=== PATIENT | male | born 1945 | race Caucasian/White ===

== ENCOUNTER 2022-10-02 17:29 | Inpatient (IN) | payer MEDICARE ==
[2022-10-02 17:46] LABS: Glucose,Whole Blood 84 mg/dL (70-110)
--- NOTE | 2022-10-02 18:11 | XR ---
EXAMINATION TYPE: XR chest 2V DATE OF EXAM: 10/02/2022 COMPARISON: NONE HISTORY: Vision loss TECHNIQUE: 2 views FINDINGS: Heart is normal. Lungs are clear of infiltrate. No heart failure. There are no hilar masses . Costophrenic angles are clear. There are chest leads. IMPRESSION: No active cardiopulmonary disease.
--- NOTE | 2022-10-02 18:12 | ED ---
Neuro HPI - General Chief Complaint: Neuro Symptoms/Deficit Stated Complaint: Poss Stroke, Sent by Eye Time Seen by Provider: 10/02/22 17:37 Source: patient Mode of arrival: ambulatory Limitations: no limitations - History of Present Illness Is the patient presenting with stroke symptoms?: Yes Last Known Well Date: 10/01/22 Last Known Well Time: 20:00 -: hour(s) Initial Comments: This patient is a 77-year-old man who presents here to have evaluation for suspected occipital stroke. The patient had gone to see Dr. Meek in his clinic today in relation to a change in his vision. The patient states that it seemed like he was having hard time noting the left side of words and sentences that he was reading. This started yesterday in the evening. Patient was seen by Dr. Meek stated that the patient's ophthalmologic examination seemed normal and he was concerned about occipital stroke. The patient does note also that he has been having about 2 weeks of intermittent right arm tingling. Location: other (Vision) History of same: No Place: home Severity: moderate Quality: other Improves With: none Worsens With: none Context: sudden onset Associated Symptoms: denies other symptoms Treatments Prior to Arrival: none - Related Data Home Medications: Home Medications Medication Instructions Recorded Confirmed Acetaminophen Tab [Tylenol] 1,000 mg PO Q6HR PRN 10/02/22 10/02/22 Nirmatrelvir/Ritonavir [Paxlovid 1 dose PO DAILY 10/02/22 10/02/22 300-100 mg Pack (Eua)] Previous Rx's Medication Instructions Recorded Aspirin [Adult Low Dose Aspirin EC] 81 mg PO DAILY #30 tab 10/04/22 Atorvastatin [Lipitor] 40 mg PO HS #30 tab 10/04/22 Clopidogrel [Plavix] 75 mg PO DAILY 21 Days #21 tab 10/04/22 Allergies/Adverse Reactions: Allergies Allergy/AdvReac Type Severity Reaction Status Date / Time adhesive tape Allergy Rash/Hives Verified 10/03/22 17:35 Review of Systems ROS Statement: Those systems with pertinent positive or pertinent negative responses have been documented in the HPI. ROS Other: All systems not noted in ROS Statement are negative. Constitutional: Denies: fever, chills, weakness Eyes: Reports: vision change. Denies: eye pain ENT: Denies: hearing loss, congestion Respiratory: Denies: cough, dyspnea Cardiovascular: Denies: chest pain, palpitations, syncope Gastrointestinal: Denies: abdominal pain, vomiting, diarrhea Genitourinary: Denies: dysuria, hematuria Skin: Denies: rash Neurological: Reports: as per HPI, paresthesias (Right arm). Denies: headache, weakness, numbness Hematological/Lymphatic: Denies: easy bleeding General Exam Limitations: no limitations General appearance: alert, in no apparent distress Head exam: Present: atraumatic, normocephalic Eye exam: Present: normal appearance. Absent: scleral icterus, conjunctival injection ENT exam: Present: normal oropharynx Neck exam: Present: normal inspection Respiratory exam: Present: normal lung sounds bilaterally. Absent: respiratory distress, wheezes, rales, rhonchi, stridor Cardiovascular Exam: Present: regular rate, normal rhythm, normal heart sounds. Absent: systolic murmur, diastolic murmur, rubs, gallop GI/Abdominal exam: Present: soft. Absent: distended, tenderness, guarding, rebound, rigid, mass Extremities exam: Present: normal inspection, normal capillary refill. Absent: pedal edema, calf tenderness Back exam: Present: normal inspection. Absent: CVA tenderness (R), CVA tenderness (L) Neurological exam: Present: alert, oriented X3, CN II-XII intact. Absent: motor sensory deficit Skin exam: Present: warm, dry, intact, normal color. Absent: rash Stroke MDM - Lab Data Result diagrams: 10/04/22 10:16 10/04/22 10:16 Lab Results 10/02/22 10/02/22 10/02/22 Range/Units 17:41 18:00 18:00 WBC 8.7 (3.8-10.6) k/uL RBC 4.57 (4.30-5.90) m/uL Hgb 15.0 (13.0-17.5) gm/dL Hct 43.9 (39.0-53.0) % MCV 96.0 (80.0-100.0) fL MCH 32.9 (25.0-35.0) pg MCHC 34.2 (31.0-37.0) g/dL RDW 12.2 (11.5-15.5) % Plt Count 239 (150-450) k/uL MPV 7.9 Neutrophils % 52 % Lymphocytes % 36 % Monocytes % 6 % Eosinophils % 3 % Basophils % 1 % Neutrophils # 4.5 (1.3-7.7) k/uL Lymphocytes # 3.1 (1.0-4.8) k/uL Monocytes # 0.6 (0-1.0) k/uL Eosinophils # 0.2 (0-0.7) k/uL Basophils # 0.1 (0-0.2) k/uL PT 10.4 (9.0-12.0) sec INR 1.0 (<1.2) APTT 24.5 (22.0-30.0) sec Sodium (137-145) mmol/L Potassium (3.5-5.1) mmol/L Chloride (98-107) mmol/L Carbon Dioxide (22-30) mmol/L Anion Gap mmol/L BUN (9-20) mg/dL Creatinine (0.66-1.25) mg/dL Est GFR (CKD-EPI)AfAm (>60 ml/min/1.73 sqM) Est GFR (CKD-EPI)NonAf (>60 ml/min/1.73 sqM) Glucose (74-99) mg/dL POC Glucose (mg/dL) 84 (70-110) mg/dL POC Glu Corporate Quality Manager ID [place] [address] Glu mg/dL Hemoglobin A1c (0.0-6.0) % Calcium (8.4-10.2) mg/dL Total Bilirubin (0.2-1.3) mg/dL AST (17-59) U/L ALT (4-49) U/L Alkaline Phosphatase (38-126) U/L Troponin I (0.000-0.034) ng/mL Total Protein (6.3-8.2) g/dL Albumin (3.5-5.0) g/dL 10/02/22 10/02/22 10/02/22 Range/Units 18:00 18:00 18:00 WBC (3.8-10.6) k/uL RBC (4.30-5.90) m/uL Hgb (13.0-17.5) gm/dL Hct (39.0-53.0) % MCV (80.0-100.0) fL MCH (25.0-35.0) pg MCHC (31.0-37.0) g/dL RDW (11.5-15.5) % Plt Count (150-450) k/uL MPV Neutrophils % % Lymphocytes % % Monocytes % % Eosinophils % % Basophils % % Neutrophils # (1.3-7.7) k/uL Lymphocytes # (1.0-4.8) k/uL Monocytes # (0-1.0) k/uL Eosinophils # (0-0.7) k/uL Basophils # (0-0.2) k/uL PT (9.0-12.0) sec INR (<1.2) APTT (22.0-30.0) sec Sodium 140 (137-145) mmol/L Potassium 4.4 (3.5-5.1) mmol/L Chloride 105 (98-107) mmol/L Carbon Dioxide 33 H (22-30) mmol/L Anion Gap 2 mmol/L BUN 24 H (9-20) mg/dL Creatinine 0.96 (0.66-1.25) mg/dL Est GFR (CKD-EPI)AfAm 89 (>60 ml/min/1.73 sqM) Est GFR (CKD-EPI)NonAf 77 (>60 ml/min/1.73 sqM) Glucose 106 H (74-99) mg/dL POC Glucose (mg/dL) (70-110) mg/dL POC Glu Corporate Quality Manager ID Estimated Ave Glu mg/dL 111 Hemoglobin A1c 5.5 (0.0-6.0) % Calcium 9.1 (8.4-10.2) mg/dL Total Bilirubin 0.5 (0.2-1.3) mg/dL AST 29 (17-59) U/L ALT 23 (4-49) U/L Alkaline Phosphatase 84 (38-126) U/L Troponin I <0.012 (0.000-0.034) ng/mL Total Protein 6.4 (6.3-8.2) g/dL Albumin 4.1 (3.5-5.0) g/dL - Medical Decision Making Patient is 77-year-old man here to have evaluation for possible occipital stroke. When I examined the patient I am not able to find the visual field deficit with certainty. The patient is worked up per the stroke protocol. Case discussed with the stroke team and their recommendations are incorporated. - EKG Data -: EKG Interpreted by Me EKG shows normal: sinus rhythm, axis (Normal), intervals (Normal), QRS complexes (Normal), ST-T waves (Normal) Rate: normal (Rate 77 bpm) When compared to previous EKG there are: no significant change Past Medical History Past Medical History: No Reported History History of Any Multi-Drug Resistant Organisms: None Reported Past Surgical History: Back Surgery, Joint Replacement Additional Past Surgical History / Comment(s): left hip replacement Past Psychological History: No Psychological Hx Reported Smoking Status: Never smoker Past Alcohol Use History: None Reported Past Drug Use History: None Reported Course Vital Signs 10/02/22 10/02/22 10/02/22 17:32 17:45 18:00 Temperature 98.2 F Pulse Rate 78 75 80 Respiratory 18 18 20 Rate Blood Pressure 150/90 178/102 145/86 O2 Sat by Pulse 99 97 97 Oximetry 10/02/22 10/02/22 10/02/22 18:15 18:33 19:00 Temperature Pulse Rate 75 70 81 Respiratory 18 18 18 Rate Blood Pressure 134/82 138/90 151/86 O2 Sat by Pulse 98 97 97 Oximetry 10/02/22 10/02/22 10/03/22 21:17 23:18 00:56 Temperature Pulse Rate 66 56 L 56 L Respiratory 18 14 14 Rate Blood Pressure 164/97 138/91 134/75 O2 Sat by Pulse 96 100 97 Oximetry 10/03/22 10/03/22 10/03/22 02:08 05:19 06:43 Temperature Pulse Rate 54 L 45 L 50 L Respiratory 18 18 12 Rate Blood Pressure 123/77 123/73 109/73 O2 Sat by Pulse 97 97 96 Oximetry 10/03/22 11:43 Temperature Pulse Rate 58 L Respiratory 18 Rate Blood Pressure 124/73 O2 Sat by Pulse 100 Oximetry Critical Care Time Critical Care Time: Yes (30 minutes) Disposition Clinical Impression: Visual field defect, Cerebrovascular accident (CVA) Disposition: ADMITTED IP TO THIS [facility] Condition: Good Is patient prescribed a controlled substance at d/c from ED?: No
[2022-10-02 18:16] LABS: Basophils # (A) 0.1 k/uL (0-0.2); Basophils % (A) 1 %; Eosinophils # (A) 0.2 k/uL (0-0.7); Eosinophils % (A) 3 %; HCT 43.9 % (39.0-53.0); Lymphocytes # (A) 3.1 k/uL (1.0-4.8); Lymphocytes % (A) 36 %; MCH 32.9 pg (25.0-35.0); MCHC 34.2 g/dL (31.0-37.0); Mean Platelet Volume 7.9; Monocytes # (A) 0.6 k/uL (0-1.0); Monocytes % (A) 6 %; Neutrophils # (A) 4.5 k/uL (1.3-7.7); Neutrophils % (A) 52 %; Platelet Count 239 k/uL (150-450); RBC 4.57 m/uL (4.30-5.90); RDW 12.2 % (11.5-15.5); WBC 8.7 k/uL (3.8-10.6)
[2022-10-02 18:24] LABS: Albumin 4.1 g/dL (3.5-5.0); Calcium 9.1 mg/dL (8.4-10.2); Potassium 4.4 mmol/L (3.5-5.1); Total Bilirubin 0.5 mg/dL (0.2-1.3); Total Protein 6.4 g/dL (6.3-8.2)
--- NOTE | 2022-10-02 18:26 | CT ---
EXAMINATION TYPE: CT brain wo con for TPA DATE OF EXAM: 10/02/2022 COMPARISON: None HISTORY: neuro deficit, blurred vision CT DLP: 1186.6 mGycm Automated exposure control for dose reduction was used. Images of the brain obtained with no contrast. There is cerebral cortical atrophy. There is no mass effect nor midline shift. No sign of intracrania l hemorrhage. Calvarium is intact. There is normal aeration of the mastoid sinuses. Skull base is int act. IMPRESSION: Cerebral atrophy. No acute intracranial abnormality.
[2022-10-02 18:28] LABS: Partial Thromboplastin Time 24.5 sec (22.0-30.0); Prothrombin Time 10.4 sec (9.0-12.0)
--- NOTE | 2022-10-02 18:38 | CT ---
EXAMINATION TYPE: CT angio head neck DATE OF EXAM: 10/02/2022 COMPARISON: None HISTORY: neuro deficit, blurred vision CT DLP: 538.2 mGycm Automated exposure control for dose reduction was used. CONTRAST: Performed with IV Contrast, patient injected with 65 mL of Isovue 370. Images obtained from the aortic arch to the vertex of the brain with the IV contrast. There are Three -D postprocessed images. There is normal branching pattern of the great vessels on the aortic arch. There is arterial flow in both subclavian arteries. There is arterial flow in the common internal and external carotid arteries bilaterally. There is arterial flow in both vertebral arteries. There is some plaque formation at th e carotid artery bifurcations and less than 20% stenosis. There is arterial flow in both vertebral ar teries. There is no evidence of carotid or vertebral artery aneurysm or dissection. There is arterial flow in the vertebral basilar artery system. There is arterial flow in the anterior middle and posterior cerebral arteries bilaterally. No mass effect. No evidence of intracranial aneu rysm or neovascularity. There is normal enhancement of the venous sinuses. No evidence of intracrania l hemodynamic arterial stenosis. IMPRESSION: Mild plaque formation at the carotid artery bifurcations without hemodynamic stenosis. No significant intracranial angiographic abnormality.
[2022-10-02] MEDS ORDERED: ASPIRIN 325 MG TAB PO STA (19:46)
[2022-10-02] MEDS: FAMOTIDINE 20 MG TAB PO SCH (21:16)
[2022-10-02] MEDS: DOCUSATE 100 MG CAP PO SCH (23:13)
[2022-10-03] MEDS: SODIUM CHLORIDE 0.9% 1,000 ML IV SCH ×2 (00:59→21:58)
[2022-10-03] MEDS: ASPIRIN 325 MG TAB PO SCH (09:03)
[2022-10-03] MEDS: FAMOTIDINE 20 MG TAB PO SCH ×2 (09:04→20:47)
[2022-10-03] MEDS: DOCUSATE 100 MG CAP PO SCH ×3 (09:04→20:49)
[2022-10-03 09:26] LABS: Chol/HDL Ratio 4.61 Ratio; LDL Cholesterol,Calculated 130.9 mg/dL (0.0-131.0)
--- NOTE | 2022-10-03 11:07 | P.CNNES ---
History of Present Illness Consult date: 10/03/22 Requesting physician: Joaquim Fisher Reason for Consult: Stroke vs TIA History of Present Illness: This is a 77-year-old gentleman who presented emergency department on 10/02/2022 because of visual disturbance. Patient is accompanied with his was at bedside. He stated that during the night on 10/01/2022 he was reading something and when he looked down he was unable to see the right side of both eyes like a complete lower on the right side of both eyes so he had to turn his head to see the words. He denied any headache associate with that, any focal weakness, numbness, difficulty getting his words out, swallowing. He denies of any diplopia. Denies of any pain with moving his eyes. Currently he feels there is a black clouds moving over the right side of both eyes. Denies any history of stroke or TIA. Denies being on any antiplatelets or anticoagulation. Denies any history of atrial fibrillation. Denies history of hypertension,diabetes. Denies tobacco use or any illicit drug use. As a result of his visual disturbance the next day he went to his state pilot (Dr. Meek) and was notified likely he had a stroke and he scored the hospital for further evaluation. Upon present in the hospital his visual deficit has resolved per the ED team the ED spoke with the stroke attending. No IV TPA since symptoms resolved as well as the risk outweighed the benefit of given TPA Some of the workup during our hospital visit consisted of: Initial vitals his blood pressure 150/90, heart rate of 78, respiratory of 18, temperature of 98.2 Fahrenheit oral pulse ox of 99%. Only his blood pressure has been normal. CBC with differential is unremarkable And his chemistry panel is nothing stated about his glucose was normal sodium, calcium creatinine is within the normal limits Lipid panel is a triglyceride of 66, cholesterol is 184, LDLs 1:30 and HDL is 39. CT of the head is reported as cerebral atrophy. No acute intracranial abnormality. CT angiography of the head and neck was reported as mild plaque formation at the carotid artery bifurcation without hemodynamic stenosis. No significant i ntercranial and angiographic abnormality. EKG is reported as sinus rhythm. Normal EKG. Review of Systems Review of system: The 12 point system was reviewed and apparent positive and negative per HPI. Past Medical History Past Medical History: No Reported History History of Any Multi-Drug Resistant Organisms: None Reported Past Surgical History: Back Surgery, Joint Replacement Additional Past Surgical History / Comment(s): left hip replacement Past Psychological History: No Psychological Hx Reported Smoking Status: Never smoker Past Alcohol Use History: None Reported Past Drug Use History: None Reported Medications and Allergies Home Medications Medication Instructions Recorded Confirmed Type Acetaminophen Tab [Tylenol Tab] 1,000 mg PO Q6HR PRN 10/02/22 10/02/22 History Nirmatrelvir/Ritonavir [Paxlovid 1 dose PO DAILY 10/02/22 10/02/22 History 2X150 mg-100 mg (Eua)] Allergies Allergy/AdvReac Type Severity Reaction Status Date / Time No Known Allergies Allergy Verified 10/02/22 18:13 Physical Examination - Vital Signs Vital Signs: Vital Signs Temp Pulse Resp BP Pulse Ox 10/03/22 06:43 50 L 12 109/73 96 10/03/22 05:19 45 L 18 123/73 97 10/03/22 02:08 54 L 18 123/77 97 10/03/22 00:56 56 L 14 134/75 97 10/02/22 23:18 56 L 14 138/91 100 10/02/22 21:17 66 18 164/97 96 10/02/22 19:00 81 18 151/86 97 10/02/22 18:33 70 18 138/90 97 10/02/22 18:15 75 18 134/82 98 10/02/22 18:00 80 20 145/86 97 10/02/22 17:45 75 18 178/102 97 10/02/22 17:32 98.2 F 78 18 150/90 99 Intake and Output 10/02/22 10/03/22 10/03/22 22:59 06:59 14:59 Other: Weight 86.183 kg GENERAL: The patient is lying in bed and is not in acute distress. CHEST: The heart rate is regular rate rhythm. No murmurs to auscultation. No carotid bruit bilaterally. LUNG: Clear to auscultation bilaterally no wheezing noted throughout. Not labored breathing. ABDOMEN/GI: Bowel sounds present in all 4 quadrants. No tenderness to palpation throughout. NEUROLOGICAL: Higher mental function: The patient is awake, alert, oriented to self, place and time. Patient is following commands. No aphasia and no neglect. Cranial nerves: The pupils are round, equal and reactive to light and accommodation. Visual limon are full to confrontation throughout. Extraocular movement is intact no nystagmus is noted. Facial sensation is normal to touch throughout. The facial strength is normal throughout. Hearing is normal bilaterally to hand rub. Tongue is midline and moved [id number] without any difficulty. No dysarthria is noted. Shoulder shrug is normal bilaterally. Motor: The strength is 5 over 5 throughout. Normal tone and bulk. Cerebellum: Normal finger to nose bilaterally. Sensation: Sensation is normal to touch throughout. Reflexes (right/left):1+ throughout. Plantars are mute bilaterally. Results - Laboratory Findings CBC and BMP: 10/02/22 18:00 10/02/22 18:00 Abnormal Lab Findings: Abnormal Labs 10/02/22 10/03/22 18:00 06:03 Carbon Dioxide 33 H BUN 24 H Glucose 106 H HDL Cholesterol 39.90 L Assessment and Plan Assessment: This is a 77-year-old gentleman who presented because of sudden onset of right vision loss over both eyes upon trying to read on 10/01/2022 at night. On presentation visual limon are within normal limits. He feels he has a black cloud that's moving over the right side of both eyes. Denies of any focal deficit, headache. Acute ischemic stroke History of lower back surgery History of hip surgery Plan: I ordered MRI of the brain to rule out any acute stroke not seen on a CAT scan, carotid duplex 2-D echo, TSH, hemoglobin A1c, ESR CRP. In the ED the patient was started on aspirin 325mg daily and in addition I started the patient on Plavix 75mg daily (was not on antiplatelets prior to this). I started the patient on Lipitor 40 mg daily at bedtime for secondary stroke prophylaxis. Continue neuro checks Cardiac monitoring PT OT are consulted as well as BOX BRANDER We'll defer the rest of the medical management to primary team For DVT prophylaxis started on subcu heparin 5000 units every hours UPDATE: I personally reviewed MRI Brain and feel suggestive of acute ischemic stroke over the left occipital (predominately) and some focus over left cerebellum. Will wait for final report. Consulted cardiology for event monitor and MILDRED. The plan was discussed with the patient and his was at bedside. Thank you for the consultation Dr. Agosto will start neurology service tomorrow a.m. Time with Patient: Greater than 30
[2022-10-03] MEDS: CLOPIDOGREL 75 MG TAB PO SCH (11:42)
--- NOTE | 2022-10-03 11:45 | US ---
EXAMINATION TYPE: US carotid duplex BILAT DATE OF EXAM: 10/03/2022 COMPARISON: CTA 10/02/2022 CLINICAL HISTORY: TIA vs Stroke. TECHNIQUE: Carotid duplex ultrasound examination. Indirect Doppler criteria was utilized. FINDINGS: EXAM MEASUREMENTS: RIGHT: Peak Systolic Velocity (PSV) cm/sec ----- Right CCA: 67.7 ----- Right ICA: 95.1 ----- Right ECA: 106.0 ICA/CCA ratio: 1.4 RIGHT: End Diastole cm/sec ----- Right CCA: 14.2 ----- Right ICA: 16.0 ----- Right ECA: 7.6 LEFT: Peak Systolic Velocity (PSV) cm/sec ----- Left CCA: 67.7 ----- Left ICA: 82.0 ----- Left ECA: 63.4 ICA/CCA ratio: 1.2 LEFT: End Diastole cm/sec ----- Left CCA: 14.2 ----- Left ICA: 19.4 ----- Left ECA: 10.1 VERTEBRALS (direction of flow): Right Vertebral: Antegrade Left Vertebral: Antegrade Rhythm: Normal SIGNAL PROCESSING ENGINEER NOTES: Mild plaque formation at the carotid artery bifurcations No elevated velocities IMPRESSION: No evidence for hemodynamically significant stenosis. Criteria for Assigning % of Stenosis / Diameter reduction (Estimation based on the indirect measurements of the internal carotid artery velocities (ICA PSV). 1. Normal (no stenosis)=ICA PSV < 125 cm/s: ratio < 2.0: ICA EDV<40 cm/s. 2. Less than 50% stenosis=ICA PSV < 125 cm/s: ratio < 2.0: ICA EDV<40 cm/s. 3. 50 to 69% stenosis=ICA PSV of 125 to 230 cm/s: ration 2.0 ? 4.0: ICA EDV 40-100 cm/s. 4. Greater than 70% stenosis to near occlusion= ICA PSV > 230 cm/s: ratio > 4.0: ICA EDV > 100 cm/s. 5. Near occlusion= ICA PSV velocities may be low or undetectable: variable ratio and ICA EDV. 6. Total occlusion=unable to detect flow.
--- NOTE | 2022-10-03 15:13 | MR ---
EXAMINATION TYPE: MR brain wo con DATE OF EXAM: 10/03/2022 2:46 PM COMPARISON: CT brain 10/02/2022. CLINICAL INDICATION:Male, 77 years old with history of vision loss. stroke; TECHNIQUE: Multi planar, multi sequence imaging was performed through the brain including: T1, T2, In version recovery, Diffusion weighted imaging, and gradient echo imaging. No gadolinium was given. FINDINGS: There is diffusion restriction within the left occipital lobe with an additional small focu s of restricted diffusion within the left cerebellar hemisphere. There is associated high T2 signal i n these regions. Scattered high T2 signal seen within the periventricular white matter. Mild dilation of the ventricles in proportion to cerebral atrophy. The bone marrow signal is within normal limits. The paranasal sinuses and globes are unremarkable. IMPRESSION: 1. Left occipital lobe acute/subacute CVA. 2. Small focus of acute/subacute CVA within the left cerebellum. 3. Nonspecific white matter changes, likely secondary to small vessel ischemic disease A Yellow level critical message alert has been initiated for Hector Milan MD via the [employer] Critical Results System on 10/03/2022 3:11 PM. This message alert has been sent to Hector Milan MD vi a the preferences provided by the clinician for the receipt of Radiology Critical Findings. Message I D [id number].
[2022-10-03] MEDS: HEPARIN SODIUM,PORCINE/PF 5,000 UNIT/0.5 ML SYRINGE SQ SCH ×2 (17:35→20:47)
--- NOTE | 2022-10-03 18:07 | CA ---
Transthoracic Echo Report Name: Jd Goldman Age: 77 Gender: M : 1945 Exam Date: 10/03/2022 10:47 Exam Location: [facility] Ht (in): 72 Wt (lb): 190 Ordering Physician: Kevin Jiménez MD Attending/Referring Phys: Pump Station Operator Anca Barajas RDCS Procedure CPT: Indications: stroke Cardiac Hx: Technical Quality: Fair Contrast 1: Total Dose (mL): Contrast 2: Total Dose (mL): MEASUREMENTS (Male / Female) Normal Values 2D ECHO LV Diastolic Diameter PLAX 3.5 cm 4.2 - 5.9 / 3.9 - 5.3 cm LV Systolic Diameter PLAX 2.8 cm IVS Diastolic Thickness 1.5 cm 0.6 - 1.0 / 0.6 - 0.9 cm LVPW Diastolic Thickness 1.4 cm 0.6 - 1.0 / 0.6 - 0.9 cm LV Relative Wall Thickness 0.8 LA Volume 72.5 cm??? 18 - 58 / 22 - 52 cm??? M-MODE Aortic Root Diameter MM 3.5 cm LA Systolic Diameter MM 3.1 cm LA Ao Ratio MM 0.9 AV Cusp Separation MM 2.0 cm DOPPLER AV Peak Velocity 169.1 cm/s AV Peak Gradient 11.4 mmHg AV Mean Velocity 120.0 cm/s AV Mean Gradient 6.3 mmHg AV Velocity Time Integral 34.7 cm LVOT Peak Velocity 133.2 cm/s LVOT Peak Gradient 7.1 mmHg LVOT Velocity Time Integral 32.7 cm MV Area PHT 3.1 cm??? Mitral E Point Velocity 77.6 cm/s Mitral A Point Velocity 106.3 cm/s Mitral E to A Ratio 0.7 MV Deceleration Time 242.5 ms MV E' Velocity 5.6 cm/s Mitral E to MV E' Ratio 13.8 FINDINGS Left Ventricle Moderately increased left ventricular wall thickness. Normal left ventricular systolic function with no obvious regional wall motion abnormalities. Left ventricular ejection fraction is estimated at 55-60 %. Normal left ventricular diastolic filling pattern. Right Ventricle Normal right ventricular size and function. Right ventricular systolic pressure within normal limits. Right Atrium Normal right atrial size. Left Atrium Moderately increased left atrial volume. Mitral Valve Structurally normal mitral valve. Mild mitral annular calcification. Mild mitral regurgitation. Aortic Valve No aortic valve stenosis or regurgitation. Tricuspid Valve Structurally normal tricuspid valve. Mild tricuspid regurgitation. Pulmonic Valve Trace pulmonic regurgitation. Pericardium No pericardial effusion. Aorta Normal size aortic root and proximal ascending aorta. CONCLUSIONS Left ventricular ejection fraction 55-60% Moderately increased left ventricular wall thickness Mild mitral regurgitation Mild mitral annular calcification Mild tricuspid regurgitation Normal RVSP No pericardial effusion Previewed by: Dr. Alhaji Tinsley DO (Electronically Signed) Final Date: 03 October 2022 18:06
--- NOTE | 2022-10-03 20:50 | P.HPIM ---
History of Present Illness Chief Complaint: visual loss This is a history and physical on a 77-year-old white male who yesterday was seen by ophthalmology secondary to visual loss as he was reading yesterday. 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 Retinal examination did not show a significant problems so he was sent for appropriate workup for CVA. CT with CT angiogram is negative but he ended up having an MRI which sh owed appropriate occipital lesion causing his visual loss. Appreciate neurology input. Recent Covid. No speech or hearing difficulties. No lateral weakness stated. Review of Systems Constitutional: Denies chills, Denies fever Ears, nose, mouth and throat: Denies headache, Denies sore throat Cardiovascular: Denies chest pain, Denies shortness of breath Respiratory: Denies cough Musculoskeletal: Denies myalgias Neurological: Reports as per HPI, Reports visual changes Psychiatric: Denies anxiety, Denies depression Past Medical History Past Medical History: No Reported History History of Any Multi-Drug Resistant Organisms: None Reported Past Surgical History: Back Surgery, Joint Replacement Additional Past Surgical History / Comment(s): left hip replacement Past Psychological History: No Psychological Hx Reported Smoking Status: Never smoker Past Alcohol Use History: None Reported Past Drug Use History: None Reported Medications and Allergies Home Medications Medication Instructions Recorded Confirmed Type Acetaminophen Tab [Tylenol Tab] 1,000 mg PO Q6HR PRN 10/02/22 10/02/22 History Nirmatrelvir/Ritonavir [Paxlovid 1 dose PO DAILY 10/02/22 10/02/22 History 2X150 mg-100 mg (Eua)] Allergies Allergy/AdvReac Type Severity Reaction Status Date / Time adhesive tape Allergy Rash/Hives Verified 10/03/22 17:35 Physical Exam Vitals: Vital Signs Temp Pulse Pulse Resp BP BP Pulse Ox 10/03/22 15:53 98.4 F 74 16 151/80 97 10/03/22 11:43 58 L 18 124/73 100 10/03/22 06:43 50 L 12 109/73 96 10/03/22 05:19 45 L 18 123/73 97 10/03/22 02:08 54 L 18 123/77 97 10/03/22 00:56 56 L 14 134/75 97 10/02/22 23:18 56 L 14 138/91 100 10/02/22 21:17 66 18 164/97 96 Intake and Output 10/03/22 10/03/22 10/03/22 06:59 14:59 22:59 Other: Voiding Method Toilet # Voids 2 - Constitutional General appearance: cooperative, no acute distress - EENT Eyes: EOMI - Neck Neck: no lymphadenopathy - Respiratory Respiratory: bilateral: CTA - Cardiovascular Rhythm: regular Heart sounds: normal: S1, S2 Abnormal Heart Sounds: no S3 Gallop - Gastrointestinal General gastrointestinal: soft, no tenderness - Neurologic Neurologic: CNII-XII intact - Psychiatric Psychiatric: A&O x's 3 Results CBC & Chem 7: 10/02/22 18:00 10/02/22 18:00 Labs: Abnormal Lab Results - Last 24 Hours (Table) 10/03/22 Range/Units 06:03 HDL Cholesterol 39.90 L (40.00-60.00) mg/dL Thrombosis Risk Factor Assmnt - Choose All That Apply Any of the Below Risk Factors Present?: No Other Risk Factors: Yes Each Risk Factor Represents 3 Points: Age 75 years or older Other congenital or acquired thrombophilia - If yes, enter type in comment: No Thrombosis Risk Factor Assessment Total Risk Factor Score: 3 Thrombosis Risk Factor Assessment Level: Moderate Risk Assessment and Plan (1) Cerebrovascular accident (CVA) Current Visit: Yes Status: Acute Code(s): I63.9 - CEREBRAL INFARCTION, UNSPECIFIED SNOMED Code(s): 473849007 (2) Visual field defect Current Visit: Yes Status: Acute Code(s): H53.40 - UNSPECIFIED VISUAL FIELD DEFECTS SNOMED Code(s): 52113718 Plan: Appreciate neurology input. MRI shows appropriate defect which corroborates his story and history. Otherwise, reconcile home medications as necessary. Anti-platelet agent. Continue therapy. Hopefully we can discharge in the next 24-48 hours if he is stable. Dr. Wade's group will be covering for the weekend Time with Patient: Greater than 30
[2022-10-03] MEDS ORDERED: ATORVASTATIN 40 MG TAB PO SCH (21:00)
[2022-10-03] MEDS: PANTOPRAZOLE 40 MG/10 ML VIAL IVP SCH (21:57)
[2022-10-04] MEDS: ASPIRIN 325 MG TAB PO SCH (08:55)
[2022-10-04] MEDS: PANTOPRAZOLE 40 MG/10 ML VIAL IVP SCH (08:55)
[2022-10-04] MEDS: HEPARIN SODIUM,PORCINE/PF 5,000 UNIT/0.5 ML SYRINGE SQ SCH (08:55)
[2022-10-04] MEDS: CLOPIDOGREL 75 MG TAB PO SCH (08:56)
[2022-10-04] MEDS: DOCUSATE 100 MG CAP PO SCH (08:56)
--- NOTE | 2022-10-04 10:31 | P.PN ---
Subjective Progress Note Date: 10/04/22 Patient initially seen by Dr. Kevin Jiménez. Please refer to his note for details. Patient is a 77-year-old male presented with visual disturbance on the right side. MRI of the brain confirmed acute ischemic stroke over the left occipital region and smaller area involving the left cerebellum. Patient had recent Covid infection on 09/18/2022. Patient says that he was not taking any antiplatelet medication at home prior to arrival. He was not taking any medication at all except for Tylenol as needed. At present patient states that he continues to have some geometric figures noticed in the right visual field. The color of this geometric visual scotoma carries over from the previous image that he looks at. Objective - Vital Signs Vital signs: Vital Signs Temp 98.1 F 10/04/22 04:00 Pulse 64 10/04/22 04:00 Resp 16 10/04/22 04:00 BP 118/70 10/04/22 04:00 Pulse Ox 98 10/04/22 04:00 FiO2 Intake & Output 10/03/22 10/04/22 10/04/22 18:59 06:59 18:59 Intake Total 118 Balance 118 Intake: Oral 118 Other: Voiding Method Toilet Toilet # Voids 2 1 - Exam Patient's mental status, speech and language functions are normal. Cranial nerves are normal. His visual limon are full in all 9 quadrants. There is no neglect on double simultaneous stimulation. Face is symmetric and tongue protrudes the midline. On muscle strength testing there is no pronator drift and the strength is normal. Sensations equal with no neglect on double simultaneous stimulation. Cerebellar functions showed slight tremulousness for [id number] testing on the left. No ataxia in the right. Gait deferred. - Labs CBC & Chem 7: 10/04/22 10:16 10/04/22 10:16 Assessment and Plan Assessment: This is a 77-year-old gentleman who presented because of sudden onset of right vision loss over both eyes upon trying to read on 10/01/2022 at night. On presentation visual limon are within normal limits. He feels he has a black cloud that's moving over the right side of both eyes. Denies of any focal deficit, headache. Acute ischemic stroke History of lower back surgery Probable hypercoagulable state due to recent history of Covid-19 infection 09/18/2022. Hyperlipidemia History of hip surgery Plan: MRI of the brain revealed acute ischemic stroke over the left occipital (predominately) and some focus over left cerebellum CT angiography of the head and neck was reported as mild plaque formation at the carotid artery bifurcation without hemodynamic stenosis. No significant intercranial and angiographic abnormality. Telemetry monitoring showing sinus rhythm, but sometimes sinus tachycardia. No other arrhythmia. Carotid duplex showed no significant stenosis. Antegrade flow in both vertebral arteries. 2-D echo revealed normal left ventricular ejection fraction 55-60%. Moderate increased left ventricular wall thickness. Mild MR. Moderately increased left atrial size. Hemoglobin A1c 5.5 Lipid panel with cholesterol 184, LDL 130.9, HDL 39.9 and triglyceride 66. Agree with starting Lipitor 40 g daily. ESR 6 CRP <0.30, TSH 3.26 all normal. Patient to be placed on dual antiplatelet medication, aspirin 81 mg and Plavix 75 mg for 21 days. Thereafter stop Plavix and continue aspirin 81 mg indefinitely. Patient was not taking any antiplatelet medication at home prior to arrival. Neurologically clear for discharge. Follow up with neurologist as an outpatient in 2-4 weeks.
--- NOTE | 2022-10-04 10:54 | P.CRDCN ---
History of Present Illness History of present illness: HISTORY OF PRESENTING ILLNESS Patient is a pleasant 77-year-old male with no medical history other than coated recently approximate 2 weeks ago who presented with acute onset of vision loss. He saw his auto clutch rebuilder and auto clutch rebuilder noted concern of stroke and therefore presented to the ER. Brain MRI did confirm stroke. He is never had a stroke. TIA before. He did recently have coated 09/19 and was fairly mild course. No history of DVT or PE. No cardiac history. Does not smoke, no alcohol and no illicit drugs. No family history of heart disease. Troponins normal 3 and cholesterol 184, LDL 1:30, HDL 39.9. EKG shows sinus rhythm with no significant ST or T wave abnormalities. Echo shows preserved EF. REVIEW OF SYSTEMS At the time of my exam: CONSTITUTIONAL: Denies fever or chills. CARDIOVASCULAR: Denies chest pain, shortness of breath, orthopnea, PND or palpitations. RESPIRATORY: Denies cough. GASTROINTESTINAL: Denies abdominal pain, diarrhea, constipation, nausea or vomiting. MUSCULOSKELETAL: Denies myalgias. NEUROLOGIC: Denies numbness, tingling or weakness. ENDOCRINE: Denies fatigue, weight change, polydipsia or polyurina. GENITOURINARY: Denies burning, hematuria or urgency with micturation. HEMATOLOGIC: Denies history of anemia or bleeding. PHYSICAL EXAMINATION Vital signs reviewed. CONSTITUTIONAL: No apparent distress. HEENT: Head is normocephalic. Pupils are equal, round. Sclerae anicteric. Mucous membranes of the mouth are moist. No JVD. No carotid bruit. CHEST EXAMINATION: Lungs are clear to auscultation. No chest wall tenderness is noted on palpation or with deep breathing. HEART EXAMINATION: Regular rate and rhythm. S1, S2 heard. No murmurs, gallops or rub. ABDOMEN: Soft, nontender. Positive bowel sounds. EXTREMITIES: 2+ peripheral pulses, no lower extremity edema and no calf tenderness. NEUROLOGIC EXAMINATION: Patient is awake, alert and oriented x3. ASSESSMENT 1. Acute stroke 2. Recent COVID-19 infection 2 weeks ago 3. 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 Therefore recommended MILDRED which can be performed as an outpatient as well as event monitor. Denies any palpitations or history of atrial fibrillation. Patient may be discharged home with outpatient follow-up Past Medical History Past Medical History: No Reported History History of Any Multi-Drug Resistant Organisms: None Reported Past Surgical History: Back Surgery, Joint Replacement Additional Past Surgical History / Comment(s): left hip replacement Past Psychological History: No Psychological Hx Reported Smoking Status: Never smoker Past Alcohol Use History: None Reported Past Drug Use History: None Reported Medications and Allergies Home Medications Medication Instructions Recorded Confirmed Type Acetaminophen Tab [Tylenol Tab] 1,000 mg PO Q6HR PRN 10/02/22 10/02/22 History Nirmatrelvir/Ritonavir [Paxlovid 1 dose PO DAILY 10/02/22 10/02/22 History 2X150 mg-100 mg (Eua)] Allergies Allergy/AdvReac Type Severity Reaction Status Date / Time adhesive tape Allergy Rash/Hives Verified 10/03/22 17:35 Physical Exam Vitals: Vital Signs Temp Pulse Pulse Resp BP BP Pulse Ox 10/04/22 04:00 98.1 F 64 16 118/70 98 10/04/22 02:00 60 16 10/03/22 23:52 98.2 F 60 16 133/73 99 10/03/22 20:00 98 F 66 16 134/73 97 10/03/22 15:53 98.4 F 74 16 151/80 97 10/03/22 11:43 58 L 18 124/73 100 Intake and Output 10/03/22 10/04/22 10/04/22 22:59 06:59 14:59 Intake Total 118 Balance 118 Intake: Oral 118 Other: Voiding Method Toilet Toilet # Voids 1 1 Results 10/02/22 18:00 10/02/22 18:00 Current Medications Generic Name Dose Route Start Last Admin Trade Name Freq PRN Reason Stop Dose Admin Aspirin 325 mg 10/03/22 09:00 10/04/22 08:55 Aspirin 325 Mg Tab PO 325 mg DAILY MAYRA Administration Atorvastatin Calcium 40 mg 10/03/22 21:00 10/03/22 20:47 Atorvastatin 40 Mg Tab PO 40 mg HS MAYRA Administration Clopidogrel Bisulfate 75 mg 10/03/22 11:00 10/04/22 08:56 Clopidogrel 75 Mg Tab PO 75 mg DAILY MAYRA Administration Docusate Sodium 100 mg 10/03/22 00:00 10/04/22 08:56 Docusate 100 Mg Cap PO 100 mg Q8HR MAYRA Administration Heparin Sodium (Porcine) 5,000 unit 10/03/22 16:00 10/04/22 08:55 Heparin Sodium,Porcine/Pf 5,000 Unit/0.5 Ml Syringe SQ 5,000 unit Q8HR MAYRA Administration Sodium Chloride 1,000 mls @ 20 mls/hr 10/02/22 20:00 10/03/22 21:58 Saline 0.9% IV Not Given .Q24H MAYRA Pantoprazole Sodium 40 mg 10/03/22 21:00 10/04/22 08:55 Pantoprazole 40 Mg/10 Ml Vial IVP 40 mg DAILY MAYRA Administration Intake and Output 10/03/22 10/04/22 10/04/22 22:59 06:59 14:59 Intake Total 118 Balance 118 Intake: Oral 118 Other: Voiding Method Toilet Toilet # Voids 1 1 10/02/22 18:00 10/02/22 18:00
[2022-10-04 11:12] LABS: HCT 44.5 % (39.0-53.0); HGB 14.3 gm/dL (13.0-17.5); MCH 31.7 pg (25.0-35.0); MCHC 32.2 g/dL (31.0-37.0); MCV 98.5 fL (80.0-100.0); Mean Platelet Volume 8.2; Platelet Count 229 k/uL (150-450); RBC 4.52 m/uL (4.30-5.90); RDW 12.4 % (11.5-15.5); WBC 6.5 k/uL (3.8-10.6)
--- NOTE | 2022-10-04 11:20 | P.DS ---
Providers Date of admission: 10/02/22 19:51 Expected date of discharge: 10/04/22 Attending physician: Hector Milan Consults: 10/02/22 19:50 Consult Physician Routine Consulting Provider: Kevin Jiménez Consult Reason/Comments: Possible stroke vs TIA Do you want consulting provider notified?: Yes 10/03/22 15:36 Consult Physician Routine Consulting Provider: Javier Cervantes Consult Reason/Comments: stroke. Recommend event monitor and consideration MILDRED Do you want consulting provider notified?: Yes Primary care physician: Hector Milan Hospital Course: Discharge diagnoses; Acute CVA Visual field defect Hyperlipidemia Hospital course; 77-year-old white male who yesterday was seen by ophthalmology secondary to visual loss as he was reading yesterday. He went to the sole ruffer and had Lateral hemianopsia. Retinal examination did not show a significant problems so he was sent for appropriate workup for CVA. CT with CT angiogram is negative but he ended up having an MRI which showed appropriate occipital lesion causing his visual loss. Neurology and cardiology were consulted. 10/04/22. Patient seen and examined. took over care. Neurology recommended discharging patient on dual antiplatelet medication of aspirin 81 mg and Plavix 75 mg daily for 21 days, following that Plavix can be discontinued and patient to be continued indefinitely on aspirin 81 mg daily. Cardiology also evaluated the patient recommended outpatient MILDRED and discharging patient with holter monitor PHYSICAL EXAMINATION: GENERAL: The patient is alert and oriented x3, not in any acute distress. Well developed, well nourished. HEENT: Pupils are round and equally reacting to light. EOMI. No scleral icterus. No conjunctival pallor. Normocephalic, atraumatic. No pharyngeal erythema. No thyromegaly. CARDIOVASCULAR: S1 and S2 present. No murmurs, rubs, or gallops. PULMONARY: Chest is clear to auscultation, no wheezing or crackles. ABDOMEN: Soft, nontender, nondistended, normoactive bowel sounds. No palpable organomegaly. MUSCULOSKELETAL: No joint swelling or deformity. EXTREMITIES: No cyanosis, clubbing, or pedal edema. NEUROLOGICAL: Gross neurological examination did not reveal any focal deficits. SKIN: No rashes. Patient Condition at Discharge: Good Plan - Discharge Summary Discharge Rx Participant: No New Discharge Prescriptions: New Clopidogrel [Plavix] 75 mg PO DAILY 21 Days #21 tab Aspirin [Adult Low Dose Aspirin EC] 81 mg PO DAILY #30 tab Atorvastatin [Lipitor] 40 mg PO HS #30 tab Continue Acetaminophen Tab [Tylenol] 1,000 mg PO Q6HR PRN PRN Reason: Pain Or Fever > 100.5 Nirmatrelvir/Ritonavir [Paxlovid 300-100 mg Pack (Eua)] 1 dose PO DAILY Discharge Medication List Acetaminophen Tab [Tylenol] 1,000 mg PO Q6HR PRN 10/02/22 [History] Nirmatrelvir/Ritonavir [Paxlovid 300-100 mg Pack (Eua)] 1 dose PO DAILY 10/02/22 [History] Aspirin [Adult Low Dose Aspirin EC] 81 mg PO DAILY #30 tab 10/04/22 [Rx] Atorvastatin [Lipitor] 40 mg PO HS #30 tab 10/04/22 [Rx] Clopidogrel [Plavix] 75 mg PO DAILY 21 Days #21 tab 10/04/22 [Rx] Follow up Appointment(s)/Referral(s): Hector Milan MD [Primary Care Provider] - 1-2 days Discharge Disposition: HOME SELF-CARE
[2022-10-04 11:37] LABS: ALT 19 U/L (4-49); AST 27 U/L (17-59); African American GFR (CKD) >90 (>60 ml/min/1.73 sqM); Alkaline Phosphatase 73 U/L (38-126); Anion Gap 5 mmol/L; Blood Urea Nitrogen 20 mg/dL (9-20); Calcium 8.8 mg/dL (8.4-10.2); Carbon Dioxide 32 mmol/L (22-30); Chloride 104 mmol/L (98-107); Glucose 96 mg/dL (74-99); Non-African American GFR(CKD) 84 (>60 ml/min/1.73 sqM); Potassium 4.4 mmol/L (3.5-5.1); Sodium 141 mmol/L (137-145); Total Bilirubin 0.6 mg/dL (0.2-1.3); Total Protein 6.2 g/dL (6.3-8.2)
[2022-10-04 11:50] VITALS: BP 120/71; PULSE 62; RESP 18; TEMP 97.9
[2022-10-04 19:17] LABS: C Reactive Protein <0.30 mg/dL (0.00-0.80)
== END 2022-10-04 14:26 | disposition home or self-care (01) | DRG 65 ==
LOC: EC 17:29 → 3SCARD 19:51
PROVIDERS: ADMIT Family Medicine; ATTEND Family Medicine
DX: I63.532 Cerebral infarction due to unspecified occlusion or stenosis of left posterior cerebral artery (principal); D68.69 Other thrombophilia; I08.1 Rheumatic disorders of both mitral and tricuspid valves; I63.542 Cerebral infarction due to unspecified occlusion or stenosis of left cerebellar artery; H53.47 Heteronymous bilateral field defects; E78.5 Hyperlipidemia, unspecified; H53.459 Other localized visual field defect, unspecified eye; H54.3 Unqualified visual loss, both eyes; R20.2 Paresthesia of skin; Z96.642 Presence of left artificial hip joint; Z86.16 Personal history of COVID-19; Z91.048 Other nonmedicinal substance allergy status; Z79.02 Long term (current) use of antithrombotics/antiplatelets; Z79.82 Long term (current) use of aspirin; Z79.899 Other long term (current) drug therapy
CPT/HCPCS: 36415; 70450; 70496; 70498; 70551; 71046; 80053; 80061; 83036; 84443; 84484; 85025; 85027; 85610; 85652; 85730; 86140; 93005; 93270; 93306; 93880; 94760; 99291

== ENCOUNTER 2022-11-01 09:11 | Day surgery (SDC) | payer MEDICARE ==
[2022-10-29 14:28] VITALS: BMI 25.7
[~2022-11-01 09:11] MED LIST: ALPRAZolam 0.25 MG TAB PO PRN; ALPRAZolam 0.5 MG TAB PO PRN; ASPIRIN 325 MG TAB PO ONE; ATORVASTATIN 80 MG TAB PO ONE; HEPARIN SODIUM,PORCINE 10,000 UNIT in SODIUM CHLORIDE 0.9% 1,000 ML IRRIGATION PRN; HEPARIN SODIUM,PORCINE 2,500 UNIT in SODIUM CHLORIDE 0.9% 250 ML IRRIGATION PRN; NITROGLYCERIN SL TABS 0.4 MG TAB SUBLINGUAL PRN; SODIUM CHLORIDE 0.9% 1,000 ML in EMPTY BAG 1 BAG IV SCH
[2022-11-01] MEDS ORDERED: SODIUM CHLORIDE 0.9% 500 ML 500 ML IV ONE (09:30)
[2022-11-01 09:53] VITALS: TEMP 98.1
[2022-11-01] MEDS ORDERED: fentaNYL (PF) 50 MCG/ML 2 ML AMP ONE (10:29)
[2022-11-01] MEDS ORDERED: BENZOCAINE SPRAY 1 CAN TOPICAL ONE (10:36)
[2022-11-01] MEDS ORDERED: MIDAZOLAM 2 MG/2 ML VIAL IV ONE ×2 (10:36→10:44)
[2022-11-01] MEDS ORDERED: fentaNYL (PF) 50 MCG/ML 2 ML AMP IV ONE (10:40)
--- NOTE | 2022-11-01 10:56 | P.TEE ---
Description of Procedure(s): Procedure performed: Transesophageal Echocardiogram with color flow doppler, pulsed wave doppler and continuous wave doppler, moderate conscious sedation Moderate conscious sedation: Moderate conscious sedation was supplied with direct supervision of myself using Versed and Fentanyl. Complications: none Indications: Cryptogenic stroke PROCEDURE: After the risks, benefits and alternatives of the above mentioned procedure was explained in detail with the patient, informed consent was obtained. Patient was brought to the lab in a fasting state. Patient was given IV Versed and Fentanyl for sedation. The throat was sprayed with Hurricane to anesthetize the throat. A lubricated Omni probe was then introduced into the es ophagus and stomach and multiple views were obtained. 2D echo with color flow doppler, pulsed wave doppler and continuous wave doppler was utilized. Agitated saline bubbles were injected to assess for any intra-atrial shunt. The probe was then removed. Patient tolerated the procedure well. Patient was transferred to the post procedure area in stable and satisfactory condition. FINDINGS: 1. The aortic valve is tricuspid and functioning normally without any significant aortic stenosis. 2. The mitral valve appears be normal with trace mitral regurgitation. 3. Tricuspid valve is normal with trace tricuspid regurgitation. 4. The interatrial septum is intact. No evidence of PFO. 5. Left atrial appendage is free of clot. 6. Left ventricular size and function are normal with left ventricular ejection fraction 55%
[2022-11-01 11:08] VITALS: RESP 12
[2022-11-01 12:00] VITALS: PULSE 60
[2022-11-01 12:01] VITALS: BP 141/80
== END 2022-11-01 12:10 | disposition home or self-care (01) ==
LOC: CATHCVL 09:11
PROVIDERS: ATTEND Internal Medicine
DX: I63.9 Cerebral infarction, unspecified (principal); E78.5 Hyperlipidemia, unspecified; Z86.16 Personal history of COVID-19; Z79.02 Long term (current) use of antithrombotics/antiplatelets; Z79.82 Long term (current) use of aspirin
CPT/HCPCS: 93312; 93320; 93325; J2250; J3010

== ENCOUNTER 2023-02-27 18:18 | Emergency (ER) | payer MEDICARE ==
[2023-02-27] MEDS ORDERED: SODIUM CHLORIDE 0.9% 500 ML 500 ML IV STA (18:31)
--- NOTE | 2023-02-27 18:52 | ED ---
General Adult HPI - General Chief complaint: Syncope Stated complaint: syncope Time Seen by Provider: 02/27/23 18:25 Source: patient, EMS Mode of arrival: EMS Limitations: no limitations - History of Present Illness Initial comments: This patient is 77-year-old man who presents to have evaluation after he had passed out at home. The patient states that he thinks he is dehydrated. He had not had any need or drink since last night, as he was having a cataract surgery today at 2 PM. He states he didn't really take much after the surgery because his stomach was a little upset. The patient states that he was at home and went to get up, felt lightheaded and then remembers waking up. The patient does not believe he had any injury. He does not believe he had a significant fall. He is not complaining of pain anywhere. He states that he is not having any eye discomfort. Patient did not note any chest pain or dyspnea. No palpitations. No nausea or vomiting. -: minutes(s) Severity scale (1-10): 0 Consistency: now resolved Improves with: none Worsens with: none Associated Symptoms: denies other symptoms Treatments Prior to Arrival: none - Related Data Home Medications Medication Instructions Recorded Confirmed Acetaminophen Tab [Tylenol] 1,000 mg PO Q6HR PRN 10/02/22 02/27/23 Allergies Allergy/AdvReac Type Severity Reaction Status Date / Time adhesive tape Allergy Rash/Hives Verified 02/27/23 19:01 Review of Systems ROS Statement: Those systems with pertinent positive or pertinent negative responses have been documented in the HPI. ROS Other: All systems not noted in ROS Statement are negative. Constitutional: Denies: fever, chills, weakness Eyes: Denies: eye pain Respiratory: Denies: cough, dyspnea Cardiovascular: Reports: syncope. 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 History of Any Multi-Drug Resistant Organisms: None Reported Past Surgical History: Back Surgery, Joint Replacement Additional Past Surgical History / Comment(s): left hip replacement Past Anesthesia/Blood Transfusion Reactions: No Reported Reaction Past Psychological History: No Psychological Hx Reported Smoking Status: Never smoker Past Alcohol Use History: None Reported Past Drug Use History: None Reported - Past Family History Mother Family Medical History: No Reported History Father Family Medical History: Cancer Sister(s) Family Medical History: Cancer General Exam Limitations: no limitations General appearance: alert, in no apparent distress Head exam: Present: atraumatic, normocephalic Eye exam: Present: EOMI, other (Left eye is patched) Neck exam: Present: normal inspection, full ROM Respiratory exam: Present: normal lung sounds bilaterally. Absent: respiratory distress, wheezes, rales, rhonchi, stridor Cardiovascular Exam: Present: regular rate, normal rhythm, normal heart sounds. Absent: systolic murmur, diastolic murmur, rubs, gallop GI/Abdominal exam: Present: soft. Absent: tenderness, guarding, rebound, mass Extremities exam: Present: normal inspection, normal capillary refill. Absent: pedal edema, calf tenderness Neurological exam: Present: alert, oriented X3, CN II-XII intact. Absent: motor sensory deficit Skin exam: Present: warm, dry, intact, normal color. Absent: rash Course Vital Signs 02/27/23 02/27/23 02/27/23 18:20 20:11 20:48 Temperature 97.6 F Pulse Rate 62 66 84 Respiratory 16 16 18 Rate Blood Pressure 126/84 127/71 O2 Sat by Pulse 97 97 Oximetry EKG Findings - EKG Results: EKG: interpreted by CELSA, sinus rhythm (rate 61 bpm), normal axis, normal QRS, normal ST/T, no acute changes - [place], Pacemaker, Normal: Normal tracing: normal tracing Medical Decision Making - Medical Decision Making This patient is 77-year-old man here following syncopal episode at home. The patient's history and physical is unremarkable. The patient did have workup including labs, EKG, chest x-ray which I interpreted as being negative for infiltrate, congestive heart failure, pneumothorax. He did receive IV fluid. On reevaluation, the patient is feeling very well and requesting to go home. This appropriate further care and follow-up as well as return parameters. Was pt. sent in by a medical professional or institution (Dr., PA, HANGING FLAGS DECORATOR, urgent care, hospital, or penitentiary...) When possible be specific @ -[No] Did you speak to anyone other than the patient for history (EMS, parent, family, police, friend...)? What history was obtained from this source @ -[No] Did you review nursing and triage notes (agree or disagree)? Why? @ -[I reviewed and agree with nursing and triage notes] Were old charts reviewed (outside hosp., previous admission, EMS record, old EKG, old radiological studies, urgent care reports/EKG's, penitentiary records)? Report findings @ -[No old charts were reviewed] Differential Diagnosis (chest pain, altered mental status, abdominal pain women, abdominal pain men, vaginal bleeding, weakness, fever, dyspnea, syncope, headache, dizziness, GI bleed, back pain, seizure, CVA, palpatations, mental health, musculoskeletal)? @ -[Differential Syncope: Valvular disease, hypertrophic cardiomyopathy, pulmonary embolism, tamponade, tachycardia, bradycardia, [place], hypovolemia, hemorrhage, dissection, anemia, intracranial hemorrhage, seizure, hypoglycemia, carbon monoxide poisoning, this is not meant to be an all-inclusive list. EKG interpreted by me (3pts min.). @ -[As above] X-rays interpreted by me (1pt min.). @ -[As above CT interpreted by me (1pt min.). @ -[None done] U/S interpreted by me (1pt. min.). @ -[None done] What testing was considered but not performed or refused? (CT, X-rays, U/S, labs)? Why? @ -[None] What meds were considered but not given or refused? Why? @ -[None] Did you discuss the management of the patient with other professionals (professionals i.e. MYRIAM Vega, HANGING FLAGS DECORATOR, lab, RT, psych nurse, social scientist, hardwood sawyer, teacher, chief financial officer, nurse outreach case manager)? Give summary @ -[No] Was smoking cessation discussed for >3mins.? @ -[No] Was critical care preformed (if so, how long)? @ -[No] Were there social determinants of health that impacted care today? How? (Home lessness, low income, unemployed, alcoholism, drug addiction, transportation, low edu. Level, literacy, decrease access to med. care, long term, rehab)? @ -[No] Was there de-escalation of care discussed even if they declined (Discuss DNR or withdrawal of care, Hospice)? DNR status @ -[No] What co-morbidities impacted this encounter? (DM, HTN, Smoking, COPD, CAD, Cancer, CVA, ARF, Chemo, Hep., AIDS, mental health diagnosis, sleep apnea, morbid obesity)? @ -[None] Was patient admitted / discharged? Hospital course, mention meds given and route, prescriptions, significant lab abnormalities, going to OR and other pertinent info. @ -[Discharged Undiagnosed new problem with uncertain prognosis? @ -[No] Drug Therapy requiring intensive monitoring for toxicity (Heparin, Nitro, Insulin, Cardizem)? @ -[No] Were any procedures done? @ -[No] Diagnosis/symptom? @ -[Acute syncopal episode, uncomplicated Acute, or Chronic, or Acute on Chronic? @ -[default] Uncomplicated (without systemic symptoms) or Complicated (systemic symptoms)? @ -[default] Side effects of treatment? @ -[No] Exacerbation, Progression, or Severe Exacerbation? @ -[No] Poses a threat to life or bodily function? How? (Chest pain, [place], [place], pneumonia, PE, COPD, DKA, ARF, appy, cholecystitis, CVA, Diverticulitis, Homicidal, Suicidal, threat to staff... and all critical care pts) @ -[No] - Lab Data Result diagrams: 02/27/23 18:41 02/27/23 18:41 Lab Results 02/27/23 02/27/23 02/27/23 Range/Units 18:41 18:41 18:41 WBC 6.0 (3.8-10.6) k/uL RBC 4.04 L (4.30-5.90) m/uL Hgb 13.2 (13.0-17.5) gm/dL Hct 39.2 (39.0-53.0) % MCV 97.0 (80.0-100.0) fL MCH 32.7 (25.0-35.0) pg MCHC 33.7 (31.0-37.0) g/dL RDW 12.6 (11.5-15.5) % Plt Count 197 (150-450) k/uL MPV 7.6 Neutrophils % 56 % Lymphocytes % 32 % Monocytes % 7 % Eosinophils % 3 % Basophils % 0 % Neutrophils # 3.3 (1.3-7.7) k/uL Lymphocytes # 1.9 (1.0-4.8) k/uL Monocytes # 0.4 (0-1.0) k/uL Eosinophils # 0.2 (0-0.7) k/uL Basophils # 0.0 (0-0.2) k/uL PT 10.7 (9.0-12.0) sec INR 1.0 (<1.2) APTT 18.5 L (22.0-30.0) sec Sodium 141 (137-145) mmol/L Potassium 3.7 (3.5-5.1) mmol/L Chloride 108 H (98-107) mmol/L Carbon Dioxide 30 (22-30) mmol/L Anion Gap 3 mmol/L BUN 17 (9-20) mg/dL Creatinine 0.88 (0.66-1.25) mg/dL Est GFR (CKD-EPI)AfAm >90 (>60 ml/min/1.73 sqM) Est GFR (CKD-EPI)NonAf 84 (>60 ml/min/1.73 sqM) Glucose 102 H (74-99) mg/dL Calcium 8.4 (8.4-10.2) mg/dL Total Bilirubin 0.6 (0.2-1.3) mg/dL AST 21 (17-59) U/L ALT 17 (4-49) U/L Alkaline Phosphatase 48 (38-126) U/L Troponin I (0.000-0.034) ng/mL Total Protein 5.3 L (6.3-8.2) g/dL Albumin 3.1 L (3.5-5.0) g/dL Urine Color Urine Appearance (Clear) Urine pH (5.0-8.0) Ur Specific [place] (1.001-1.035) Urine Protein (Negative) Urine Glucose (UA) (Negative) Urine Ketones (Negative) Urine Blood (Negative) Urine Nitrite (Negative) Urine Bilirubin (Negative) Urine Urobilinogen (<2.0) mg/dL Ur Leukocyte Esterase (Negative) Urine RBC (0-5) /hpf Urine WBC (0-5) /hpf Ur Squamous Epith Cells (0-4) /hpf Hyaline Casts (0-2) /lpf Urine Mucus (None) /hpf 02/27/23 02/27/23 Range/Units 18:41 19:00 WBC (3.8-10.6) k/uL RBC (4.30-5.90) m/uL Hgb (13.0-17.5) gm/dL Hct (39.0-53.0) % MCV (80.0-100.0) fL MCH (25.0-35.0) pg MCHC (31.0-37.0) g/dL RDW (11.5-15.5) % Plt Count (150-450) k/uL MPV Neutrophils % % Lymphocytes % % Monocytes % % Eosinophils % % Basophils % % Neutrophils # (1.3-7.7) k/uL Lymphocytes # (1.0-4.8) k/uL Monocytes # (0-1.0) k/uL Eosinophils # (0-0.7) k/uL Basophils # (0-0.2) k/uL PT (9.0-12.0) sec INR (<1.2) APTT (22.0-30.0) sec Sodium (137-145) mmol/L Potassium (3.5-5.1) mmol/L Chloride (98-107) mmol/L Carbon Dioxide (22-30) mmol/L Anion Gap mmol/L BUN (9-20) mg/dL Creatinine (0.66-1.25) mg/dL Est GFR (CKD-EPI)AfAm (>60 ml/min/1.73 sqM) Est GFR (CKD-EPI)NonAf (>60 ml/min/1.73 sqM) Glucose (74-99) mg/dL Calcium (8.4-10.2) mg/dL Total Bilirubin (0.2-1.3) mg/dL AST (17-59) U/L ALT (4-49) U/L Alkaline Phosphatase (38-126) U/L Troponin I <0.012 (0.000-0.034) ng/mL Total Protein (6.3-8.2) g/dL Albumin (3.5-5.0) g/dL Urine Color Yellow Urine Appearance Clear (Clear) Urine pH 5.5 (5.0-8.0) Ur Specific [place] 1.024 (1.001-1.035) Urine Protein 1+ H (Negative) Urine Glucose (UA) Negative (Negative) Urine Ketones Negative (Negative) Urine Blood Negative (Negative) Urine Nitrite Negative (Negative) Urine Bilirubin Negative (Negative) Urine Urobilinogen <2.0 (<2.0) mg/dL Ur Leukocyte Esterase Negative (Negative) Urine RBC 17 H (0-5) /hpf Urine WBC 2 (0-5) /hpf Ur Squamous Epith Cells <1 (0-4) /hpf Hyaline Casts 5 H (0-2) /lpf Urine Mucus Many H (None) /hpf Disposition Clinical Impression: Syncope Disposition: HOME SELF-CARE Condition: Good Instructions (If sedation given, give patient instructions): Syncope (ED) Is patient prescribed a controlled substance at d/c from ED?: No Referrals: Hector Milan MD [Primary Care Provider] - 1-2 days
[2023-02-27 18:54] VITALS: TEMP 97.6
[2023-02-27 18:57] LABS: Basophils % (A) 0 %; Eosinophils # (A) 0.2 k/uL (0-0.7); Eosinophils % (A) 3 %; HCT 39.2 % (39.0-53.0); HGB 13.2 gm/dL (13.0-17.5); Lymphocytes # (A) 1.9 k/uL (1.0-4.8); Lymphocytes % (A) 32 %; MCH 32.7 pg (25.0-35.0); MCHC 33.7 g/dL (31.0-37.0); Mean Platelet Volume 7.6; Monocytes # (A) 0.4 k/uL (0-1.0); Monocytes % (A) 7 %; Neutrophils # (A) 3.3 k/uL (1.3-7.7); Neutrophils % (A) 56 %; Platelet Count 197 k/uL (150-450); RBC 4.04 m/uL (4.30-5.90); RDW 12.6 % (11.5-15.5)
[2023-02-27 19:07] LABS: ALT 17 U/L (4-49); AST 21 U/L (17-59); African American GFR (CKD) >90 (>60 ml/min/1.73 sqM); Albumin 3.1 g/dL (3.5-5.0); Alkaline Phosphatase 48 U/L (38-126); Anion Gap 3 mmol/L; Blood Urea Nitrogen 17 mg/dL (9-20); Calcium 8.4 mg/dL (8.4-10.2); Carbon Dioxide 30 mmol/L (22-30); Chloride 108 mmol/L (98-107); Glucose 102 mg/dL (74-99); Non-African American GFR(CKD) 84 (>60 ml/min/1.73 sqM); Potassium 3.7 mmol/L (3.5-5.1); Sodium 141 mmol/L (137-145); Total Bilirubin 0.6 mg/dL (0.2-1.3); Total Protein 5.3 g/dL (6.3-8.2)
--- NOTE | 2023-02-27 19:11 | XR ---
EXAMINATION TYPE: XR chest 1V portable DATE OF EXAM: 02/27/2023 7:07 PM COMPARISON: Chest radiographs from 10/02/2022 TECHNIQUE: XR chest 1V portable Frontal view of the chest. CLINICAL INDICATION:Male, 77 years old with history of syncope; FINDINGS: Lungs/Pleura: There is no evidence of pleural effusion, focal consolidation, or pneumothorax. Pulmonary vascularity: Unremarkable. Heart/mediastinum: Cardiomediastinal silhouette is enlarged and stable. Musculoskeletal: No acute osseous pathology. IMPRESSION: No acute cardiopulmonary disease/process.
[2023-02-27 19:16] LABS: Prothrombin Time 10.7 sec (9.0-12.0)
[2023-02-27 19:21] LABS: Partial Thromboplastin Time 18.5 sec (22.0-30.0)
[2023-02-27] MEDS ORDERED: ACETAMINOPHEN TAB 325 MG TAB PO STA (19:26)
[2023-02-27 19:29] LABS: Appearance,Urine Clear (Clear); Bilirubin,Urine Negative (Negative); Blood,Urine Negative (Negative); Color,Urine Yellow; Glucose,Urine (UA) Negative (Negative); Hyaline Casts,Urine 5 /lpf (0-2); Ketones,Urine Negative (Negative); Leukocyte Esterase,Urine Negative (Negative); Mucus,Urine Many /hpf; Nitrite,Urine Negative (Negative); PH, Urine 5.5 (5.0-8.0); Protein,Urine 1+ (Negative); RBC,Urine 17 /hpf (0-5); Specific Gravity,Urine 1.024 (1.001-1.035); Squamous Epithelial Cell,Urine <1 /hpf (0-4); Urobilinogen,Urine <2.0 mg/dL (<2.0); WBC,Urine 2 /hpf (0-5)
[2023-02-27 20:48] VITALS: BP 127/71; PULSE 84; RESP 18
== END 2023-02-27 20:48 | disposition home or self-care (01) ==
LOC: EC 18:18
DX: R55 Syncope and collapse (principal); E78.5 Hyperlipidemia, unspecified; Z86.73 Personal history of transient ischemic attack (TIA), and cerebral infarction without residual deficits; Z91.048 Other nonmedicinal substance allergy status
CPT/HCPCS: 36415; 71045; 80053; 81001; 84484; 85025; 85610; 85730; 93005; 96360; 99285

== ENCOUNTER 2023-06-10 07:13 | Day surgery (SDC) | payer MEDICARE ==
[~2023-06-10 07:13] MED LIST changes: +ACETAMINOPHEN TAB 500 MG TAB PO PRN; -ALPRAZolam 0.25 MG TAB PO PRN; -ALPRAZolam 0.5 MG TAB PO PRN; -ASPIRIN 325 MG TAB PO ONE; -ATORVASTATIN 80 MG TAB PO ONE; +GABAPENTIN 300 MG CAP PO PRN; -HEPARIN SODIUM,PORCINE 10,000 UNIT in SODIUM CHLORIDE 0.9% 1,000 ML IRRIGATION PRN; -HEPARIN SODIUM,PORCINE 2,500 UNIT in SODIUM CHLORIDE 0.9% 250 ML IRRIGATION PRN; +MELOXICAM 7.5 MG TAB PO PRN; -NITROGLYCERIN SL TABS 0.4 MG TAB SUBLINGUAL PRN; -SODIUM CHLORIDE 0.9% 1,000 ML in EMPTY BAG 1 BAG IV SCH; +TRANEXAMIC 1,000 MG/100ML-NACL 1,000 MG in SALINE 1 100ML.BAG IVPB PRN
[2023-06-10] MEDS ORDERED: LACTATED RINGERS 1,000 ML IV ONE ×2 (07:33→10:08)
[2023-06-10] MEDS ORDERED: ONDANSETRON 4 MG/2 ML VIAL ONE (07:39)
[2023-06-10] MEDS ORDERED: DEXAMETHASONE SOD PHOSPHATE 4 MG/ML 1 ML VIAL IVP ONE (07:45)
[2023-06-10] MEDS ORDERED: droPERidol 5 MG/2 ML VIAL IVP ONE (07:46)
[2023-06-10] MEDS ORDERED: HYDROmorphone 0.5 MG/0.5 ML SYRINGE IVP PRN ×4 (07:46→08:32)
[2023-06-10] MEDS ORDERED: LIDOCAINE 1% (10MG/ML) FOR IV START INTRADERMA PRN (07:46)
[2023-06-10] MEDS ORDERED: LACTATED RINGERS 1,000 ML IV SCH ×2 (07:46)
[2023-06-10] MEDS ORDERED: ONDANSETRON 4 MG/2 ML VIAL IVP ONE (07:46)
[2023-06-10] MEDS ORDERED: DEXAMETHASONE SOD PHOSPHATE 4 MG/ML 1 ML VIAL IV ONE (07:46)
[2023-06-10] MEDS ORDERED: MIDAZOLAM 2 MG/2 ML VIAL IVP ONE (08:25)
[2023-06-10] MEDS ORDERED: MAGNESIUM HYDROXIDE 2,400 MG/30 ML CUP PO PRN (08:32)
[2023-06-10] MEDS ORDERED: ONDANSETRON 4 MG/2 ML VIAL IVP PRN (08:32)
[2023-06-10] MEDS ORDERED: NALOXONE 0.4 MG/ML 1 ML VIAL IV PRN (08:32)
[2023-06-10] MEDS ORDERED: HYDROcodone/APAP 7.5-325MG 1 EACH TAB PO PRN ×2 (08:33)
[2023-06-10] MEDS ORDERED: MIDAZOLAM 2 MG/2 ML VIAL ONE (08:56)
[2023-06-10] MEDS ORDERED: DEXAMETHASONE SOD PHOSPHATE 4 MG/ML 1 ML VIAL ONE (08:56)
[2023-06-10] MEDS ORDERED: TRANEXAMIC 1,000 MG/100ML-NACL PREMIX BAG ONE (08:56)
[2023-06-10] MEDS ORDERED: ROPIVACAINE 5 MG/ML 30 ML VIAL ONE (08:56)
[2023-06-10] MEDS ORDERED: ePHEDrine 50 MG/ML 1 ML VIAL ONE (08:56)
[2023-06-10] MEDS ORDERED: PROPOFOL 10 MG/ML 20 ML VIAL IV ONE (08:56)
[2023-06-10] MEDS ORDERED: fentaNYL (PF) 50 MCG/ML 2 ML AMP ONE (08:56)
[2023-06-10] MEDS ORDERED: ceFAZolin 1,000 MG in SODIUM CHLORIDE 0.9% 1,000 ML IRRIGATION ONE (09:01)
[2023-06-10] MEDS ORDERED: ROPIVACAINE 5 MG/ML 30 ML VIAL MISCELLANE ONE ×2 (09:29→10:07)
--- NOTE | 2023-06-10 10:14 | P.OP ---
Date of Procedure: 06/10/23 Preoperative Diagnosis: Severe osteoarthritis right hip Postoperative Diagnosis: Severe osteoarthritis right hip Procedure(s) Performed: Right total hip arthroplasty with a direct anterior approach Implants: [employer] Polarstem standard size 5 [employer] R3, 3 hole hemispherical acetabular shell, 54 mm [employer] Reflection 6.5 mm cancellus screw, 25 mm, 30 mm [employer] R3, XLPE 20 acetabular liner [employer] Oxinium femoral head 36 m, +4 All components were press-fit. The articulation is Oxinium on polyethylene. Anesthesia: spinal Surgeon: Mike Perrin Employment Instructional Associate #1: Kathy Lynn Estimated Blood Loss (ml): 650 Pathology: none sent Condition: stable Disposition: PACU Indications for Procedure: After failure of conservative treatment we discussed the surgical and nonsurgical treatment options at length. Patient wishes to proceed with a total hip arthroplasty with a direct anterior approach. Complications specific to this procedure were discussed at length, including but not limited to infection, leg length discrepancy, dislocation, nerve injury, and fracture. Covid-19 was also discussed at length with the patient, and they are aware of the current policies and procedures. The patient was given the option of delaying surgery, but they elect to proceed knowing these risks. Patient is aware of all these complications and informed consent was obtained Operative Findings: The operative findings are consistent with severe osteoarthritis of the right hip Description of Procedure: The patient was seen and evaluated in the preoperative area and the consent was reviewed. The operative site was marked with a skin marker. The patient verified the procedure and operative site. A LEEANN block was placed by yamilet saavedra in the preoperative area. The patient was then brought to the operating room and given preoperative antibiotics intravenously. 1 g of Tranexamic acid was also given intravenously. A spinal anesthetic was administered by the anesthesia department. The patient was then placed on the Lawrence table with the bony prominences well-padded. The hip area was then prepped with a ChloraPrep solution and draped in the usual sterile fashion. A universal timeout was then performed, which confirmed the patient's name, surgical site, ALLERGIES, and procedure being performed on the consent. Next the incision site was located at 1 cm distal and 4 cm lateral to the anterior superior iliac spine. The skin and subcutaneous tissues were sharply incised. Incision was carefully dissected down to the fascia overlying the tensor fascia stuart muscle. This fascia was then incised in line with the muscle fibers. Care was taken to stay laterally in order to avoid injuring the lateral femoral cutaneous nerve. Next, using blunt finger dissection, the tensor fascia stuart muscle was dissected off its investing fascia. The muscle was then carefully retracted laterally with a cobra retractor over the lateral neck of the femur. Next, the circumflex vessels were identified and cauterized using the Aquamantis device. The anterior hip capsule was then exposed. The capsule was then opened and an inverted T fashion. The retractors were then placed intracapsularly. The retractors were maintained intracapsular throughout the procedure. The proximal femur was then visualized. Fluoroscopic x-rays were then taken in order to evaluate the preoperative leg lengths. A small amount of traction was placed on the leg. The femoral neck was then osteotomized at the appropriate level above the lesser trochanter. A small wedge of bone was then removed from the remaining femoral head. Next, using a corkscrew the femoral head was removed from the acetabulum. On gross visual inspection, the femoral head had complete loss of articular cartilage and multiple periarticular osteophytes. The femoral head was then measured. Attention was then turned to the acetabulum. The acetabulum was exposed and any remaining labrum was excised. Sequential reaming of the acetabulum was performed using fluoroscopic guidance until there was a good bed of bleeding cancellus bone. When the appropriate size was reached, a trial was then placed. The position and fit of the trial was checked with fluoroscopy. The trial was then removed. Then, using fluoroscopic guidance, the final implant was impacted at 20 of anteversion and 40 of abduction, and fully seated in the acetabulum. 2 screws were then placed in the acetabulum. Again fluoroscopy was used to check position of the screws. Next, the liner was then impacted, with a 20 elevated liner located in the anterior superior quadrant. Component locking was confirmed. Attention was then directed to the femur. With the aid of the Lawrence table, the femur was externally rotated to approximately 130, extended, and adducted under the opposite leg. A side hook was then placed under the proximal femur, and the side hook elevator was used to elevate the proximal femur while releasing the capsule. Retractors were then placed. A capsular release was performed, as well as a release of the conjoined tendon, which afforded excellent visualizatio n of the proximal femur. Next, a box osteotome was used to lateralize the proximal femur. A supervisor coal handling was then used to locate the femoral canal. Sequential broaching was then performed with appropriate size which afforded excellent fixation in the proximal femur. A trial was then placed with appropriate head and neck, and the hip was gently reduced with the aid of the Lawrence table. Fluoroscopy was then used to check position of the components, as well as to evaluate the leg lengths and offset. The leg lengths and offset were measured as closely as possible to ensure stability of the hip. The hip was then gently dislocated and the trials were then removed. Final implants were then impacted and the hip was again reduced. Final fluoroscopic x-rays confirmed that the components were in anatomic position. The leg lengths and offset were measured and were found to coincide with the trial measurements. The hip was also taken through range of motion, and found to be stable. The hip was then copiously irrigated with antibiotic solution with pulsatile lavage. The hip was then irrigated with Irrisept solution. The soft tissues were then injected with a ropivacaine solution. A second dose of 1 g of Tranexamic acid was also given intravenously. The fascia was then closed with 2-0 strata fix suture. The subcutaneous tissue was closed with 3-0 Vicryl. The subcuticular tissue was closed with 3-0 strata fix suture. The skin was then closed with Exofin skin glue. After the glue and dried, and Optifoam silver impregnated dressing was applied. The patient was then transferred to the recovery room in stable condition. The front office assistant MYRIAM Sam was required due to the complexity of surgery, and the need for skilled surgical device sales representative for positioning, draping, exposure, retraction, and closure of the wound.
--- NOTE | 2023-06-10 10:51 | FL ---
Intraoperative/procedural fluoroscopic services were provided. Total fluoroscopy time is 43 seconds w ith a total of 2 submitted images to PACS. Please see the operative/procedural note for further brigette soriano. DAP: [id number] [id number]
--- NOTE | 2023-06-10 11:31 | XR ---
EXAMINATION TYPE: XR Hip Limited RT DATE OF EXAM: 06/10/2023 11:13 AM INDICATION: Patient age:Male; 78 years old; Reason for study: Status post hip surgery, assess surgical alignment; COMPARISON: None. TECHNIQUE: The right hip was examined in the frontal and lateral projections FINDINGS: Post arthroplasty changes, hardware is intact, alignment is appropriate. There is a curvili near lucency extending inferiorly from the acetabulum. Postoperative changes of the soft tissues with subcutaneous gas. No evidence of any acute osseous pathology or joint dislocation. IMPRESSION: 1. Suspected right pelvic fracture extending inferiorly from the acetabulum. 2. Hip arthroplasty with hardware intact and in appropriate alignment.
[2023-06-10] MEDS ORDERED: SODIUM CHLORIDE 0.9% 1,000 ML IV ONE (11:43)
--- NOTE | 2023-06-10 19:08 | P.ANPRN ---
Procedure Note - Anesthesia - Nerve Block Performed Right Silviano Single Time Out Performed: Yes Date of Procedure: 06/10/23 Procedure Start Time: :24 Procedure Stop Time: :30 Location of Patient: PreOp Indication: Acute Post-Operative Pain, Requested by Surgeon Sedation Type: Sedate with meaningful contact maintained Preparation: Sterile Prep Position: Supine Needle Types: Pajunk Needle Gauge: 21 Ultrasound used to visualize needle placement: Yes Ultrasound used to observe medication spread: Yes Blood Aspirated: No Pain Paresthesia on Injection Noted: No Resistance on Injection: Normal Image Stored and Saved: Yes Events: Uneventful and Well Tolerated (Ropivacaine 0.5% 20 mL plus dexamethasone 4mg)
[2023-06-10] MEDS ORDERED: SENNOSIDES-DOCUSATE SODIUM 1 EACH TAB PO SCH (21:00)
[2023-06-10] MEDS: ASPIRIN 325 MG TAB PO SCH (22:09)
[2023-06-11] MEDS: SODIUM CHLORIDE 0.9% 1,000 ML IV SCH (07:39)
[2023-06-11 07:57] VITALS: BP 119/73; PULSE 67; TEMP 98.3
[2023-06-11] MEDS: ASPIRIN 325 MG TAB PO SCH (08:28)
--- NOTE | 2023-06-11 09:12 | P.DS ---
Providers Expected date of discharge: 06/11/23 Attending physician: Mike Perrin Consults: 06/10/23 08:32 Consult Physician Routine Consulting Provider: Hector Milan Consult Reason/Comments: medical management Do you want consulting provider notified?: Yes Primary care physician: Hector Milan - Discharge Diagnosis(es) (1) Osteoarthritis of right hip Current Visit: Yes Status: Acute (2) S/P total right hip arthroplasty Current Visit: Yes Status: Acute Hospital Course: This is a 78-year-old male with known history of degenerative arthritis of the right hip. The patient presented for evaluation as an outpatient. After discussion and consideration patient elects to proceed with total hip arthroplasty. The patient is seen preoperatively by Dr. Perrin and medically cleared for surgery by their primary care physician. Patient is admitted to [facility] on 06/10/2023 for total hip arthroplasty. The procedure is performed without complication or sequelae. The patient is doing well postoperatively. Labs and vital signs are stable on day of discharge. On day of discharge patient's hip incision is healing well. There is minimal erythema. There is no drainage noted at this time. There is minimal soft tis tegan swelling to the hip and thigh. Patient has full foot and ankle motion without difficulty or pain. Calf is soft and nontender to palpation. Neurovascular status to the right lower extremity is intact. Patient is discharged home in good condition. Please see med rec for accurate list of home medications. Plan - Discharge Summary Discharge Rx Participant: No New Discharge Prescriptions: New Sennosides [Senokot] 2 tab PO DAILY PRN #60 tablet PRN Reason: Constipation Aspirin 325 mg PO BID #60 tab HYDROcodone/APAP 7.5-325MG [[place] 7.5-325] 1 - 2 tab PO Q6H PRN #32 tab PRN Reason: Pain No Action Acetaminophen Tab [Tylenol] 1,000 mg PO Q6HR PRN PRN Reason: Pain Or Fever > 100.5 Discharge Medication List Acetaminophen Tab [Tylenol] 1,000 mg PO Q6HR PRN 10/02/22 [History] Aspirin 325 mg PO BID #60 tab 06/10/23 [Rx] HYDROcodone/APAP 7.5-325MG [[place] 7.5-325] 1 - 2 tab PO Q6H PRN #32 tab 06/10/23 [Rx] Sennosides [Senokot] 2 tab PO DAILY PRN #60 tablet 06/10/23 [Rx] Follow up Appointment(s)/Referral(s): Hector Milan MD [Primary Care Provider] - [facility] [NON-STAFF] - 1-2 Days ([facility] will call you to schedule your in home physical therapy visits. ) Mike Perrin DO [Doctor of Osteopathic Medicine] - 06/28/23 9:00 am (With Kathy) Activity/Diet/Wound Care/Special Instructions: Weightbearing as tolerated with walker. Leave dressing intact. Dressing may be removed by home care nurse or by patient in 7 days. Then change dressing twice daily until follow up. May shower with initial dressing intact and after removal. If dressing become saturated, please remove. Please take aspirin 325mg twice daily for 30 days to prevent blood clots. Recommend use of compression stockings daily until follow up to help prevent swelling and blood clots. May remove at night before sleeping. Please follow-up with [facility] in 2 weeks and call with any questions or concerns, . Discharge Disposition: HOME WITH HOME HEALTH SERVICES
--- NOTE | 2023-06-11 09:18 | P.CONS ---
History of Present Illness - Reason for Consult Consult date: 06/11/23 Medical management - Chief Complaint Total right hip arthroplasty - History of Present Illness This is a 78-year-old male with a history of degenerative arthritis of the right hip. He has been following with Dr. Perrin outpatient and it was decided to undergo a right total hip arthroplasty. Patient doesn't have any significant medical history, reports no home meds. Labs are stable. Vitals are stable. Plan is for discharge today. He is sitting in chair at the side of bed this morning. Reports pain is well-controlled. He has full range of motion in foot and ankle without pain. Dressing is dry and intact on right hip. 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 Past Anesthesia/Blood Transfusion Reactions: No Reported Reaction Additional Past Anesthesia/Blood Transfusion Reaction / Comm: PT DEHYDRATED WITH PRIOR SURGERY/HAD TO GO TO ER FOR IV FLUIDS. Pt has never received blood Past Psychological History: No Psychological Hx Reported Additional Psychological History / Comment(s): Pt reside with spouse. Smoking Status: Never smoker Past Alcohol Use History: None Reported Past Drug Use History: None Reported - Past Family History Mother Family Medical History: No Reported History Additional Family Medical History / Comment(s): Lived to be 96yrs old. Father Family Medical History: Cancer Sister(s) Family Medical History: Cancer Medications and Allergies Home Medications Medication Instructions Recorded Confirmed Type Acetaminophen Tab [Tylenol] 1,000 mg PO Q6HR PRN 10/02/22 06/10/23 History Aspirin 325 mg PO BID #60 tab 06/10/23 Rx HYDROcodone/APAP 7.5-325MG [[place] 1 - 2 tab PO Q6H PRN #32 tab 06/10/23 Rx 7.5-325] Sennosides [Senokot] 2 tab PO DAILY PRN #60 tablet 06/10/23 Rx Allergies Allergy/AdvReac Type Severity Reaction Status Date / Time adhesive tape Allergy Rash/Hives Verified 06/10/23 07:53 Physical Exam Vitals: Vital Signs Temp Pulse Resp BP BP Pulse Ox 06/11/23 07:08 98.3 F 67 20 119/73 98 06/11/23 01:04 97.4 F L 79 97/59 95 06/10/23 19:59 98 F 92 18 123/74 96 06/10/23 13:47 77 146/79 99 06/10/23 13:33 84 139/72 95 06/10/23 13:18 70 140/87 98 06/10/23 13:02 79 145/82 97 06/10/23 12:47 97.0 F L 77 16 153/79 98 06/10/23 12:10 64 16 126/70 100 06/10/23 11:44 60 16 123/67 99 06/10/23 11:29 70 16 122/69 98 06/10/23 10:59 64 16 132/66 98 06/10/23 10:44 61 16 102/64 97 06/10/23 10:29 96.8 F L 80 16 110/59 99 Intake and Output 06/10/23 06/11/23 06/11/23 22:59 06:59 14:59 Other: Voiding Method Toilet # Voids 1 3 - Constitutional General appearance: cooperative, no acute distress - EENT Eyes: PERRLA - Neck Neck: no lymphadenopathy, normal ROM, no rigidity - Respiratory Respiratory: bilateral: CTA - Cardiovascular Rhythm: regular Heart sounds: normal: S1, S2 - Gastrointestinal General gastrointestinal: soft, no tenderness - Integumentary Dressing dry and intact right hip Integumentary: normal, normal turgor - Psychiatric Psychiatric: A&O x's 3, appropriate affect, intact judgment & insight Assessment and Plan (1) Osteoarthritis of right hip Current Visit: Yes Status: Acute Code(s): M16.11 - UNILATERAL PRIMARY OSTEOARTHRITIS, RIGHT HIP SNOMED Code(s): 781875309745534 (2) S/P total right hip arthroplasty Current Visit: Yes Status: Acute Code(s): Z96.641 - PRESENCE OF RIGHT ARTIFICIAL HIP JOINT SNOMED Code(s): 393468016785 Plan: Patient is medically stable for discharge. Follow-up in our office in one week Patient seen and evaluated by nurse practitioner, physician in agreement with plan
[2023-06-11 10:04] VITALS: RESP 18
[2023-06-11 14:14] LABS: Basophils # (A) 0.01 X 10*3/uL (0.00-0.10); Basophils % (A) 0.1 %; Eosinophils # (A) 0.01 X 10*3/uL (0.04-0.35); Eosinophils % (A) 0.1 %; HCT 36.1 % (39.6-50.0); HGB 11.8 d/dL (13.0-17.0); Lymphocytes # (A) 1.86 X 10*3/uL (0.90-5.00); Lymphocytes % (A) 14.8 %; MCH 32.3 pg (27.0-32.0); MCHC 32.7 d/dL (32.0-37.0); MCV 98.9 FL (80.0-97.0); Mean Platelet Volume 10.7 FL (9.5-12.2); Monocytes # (A) 1.31 X 10*3/uL (0.20-1.00); Monocytes % (A) 10.4 %; NRBC Per 100 WBC 0 X 10*3/uL (0.00-0.01); Neutrophils # (A) 9.31 X 10*3/uL (1.80-7.70); Neutrophils % (A) 74.3 %; Platelet Count 220 X 10*3/uL (140-440); RBC 3.65 X 10*6/uL (4.40-5.60); RDW 12.9 % (11.5-14.5); WBC 12.54 X 10*3/uL (4.50-10.00)
== END 2023-06-11 10:53 | disposition home health service (06) ==
LOC: OR 07:13 → 4SSUR 10:30 → OR 06-11 10:53
PROVIDERS: ATTEND Orthopaedic Surgery
DX: M25.551 Pain in right hip (principal); E78.5 Hyperlipidemia, unspecified; Z79.899 Other long term (current) drug therapy; Z79.52 Long term (current) use of systemic steroids
CPT/HCPCS: 27130; 97116; 97161; 97535; 97166; 64447; 86900; 86901; 85025; 86850; 73501; C1776; J2250; J1100; J0690 ×2; J2405; J3010; J2795; J2704; J1170

== ENCOUNTER 2023-06-11 19:04 | Emergency (ER) | payer MEDICARE ==
[2023-06-11 19:26] VITALS: RESP 18; TEMP 98.4
[2023-06-11] MEDS ORDERED: SODIUM CHLORIDE 0.9% 500 ML 500 ML IV STA (19:46)
--- NOTE | 2023-06-11 20:11 | ED ---
General Adult HPI - General Chief complaint: Syncope Stated complaint: Synocpe Time Seen by Provider: 06/11/23 19:36 Source: patient Mode of arrival: EMS Limitations: physical limitation - History of Present Illness Initial comments: 78-year-old male presenting for evaluation after a suspected syncopal episode at home. Patient was discharged today from right hip replacement. The patient states that he took a [place] and CBD for pain and then shortly after while he was sitting at the kitchen table his states that he put his head down and started "babbling" he appeared pale and was diaphoretic. The episodes seem to last for a few minutes. Patient does not recall this event and denies the symptoms. Patient has history of TIA. No chest pain, difficulty breathing, abdominal pain, numbness, tingling. - Related Data Home Medications Medication Instructions Recorded Confirmed Acetaminophen Tab [Tylenol] 1,000 mg PO Q6HR PRN 10/02/22 06/10/23 Previous Rx's Medication Instructions Recorded Aspirin 325 mg PO BID #60 tab 06/10/23 HYDROcodone/APAP 7.5-325MG [[place] 1 - 2 tab PO Q6H PRN #32 tab 06/10/23 7.5-325] Sennosides [Senokot] 2 tab PO DAILY PRN #60 tablet 06/10/23 Allergies Allergy/AdvReac Type Severity Reaction Status Date / Time adhesive tape Allergy Rash/Hives Verified 06/11/23 19:26 Review of Systems ROS Statement: Those systems with pertinent positive or pertinent negative responses have been documented in the HPI. ROS Other: All systems not noted in ROS Statement are negative. 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 History of Any Multi-Drug Resistant Organisms: None Reported Past Surgical History: Back Surgery, Joint Replacement Additional Past Surgical History / Comment(s): left hip replacement Past Anesthesia/Blood Transfusion Reactions: No Reported Reaction Past Psychological History: No Psychological Hx Reported Smoking Status: Never smoker Past Alcohol Use History: None Reported Past Drug Use History: None Reported - Past Family History Mother Family Medical History: No Reported History Father Family Medical History: Cancer Sister(s) Family Medical History: Cancer General Exam Limitations: physical limitation General appearance: alert, in no apparent distress Head exam: Present: atraumatic, normocephalic, normal inspection Eye exam: Present: normal appearance, PERRL, EOMI. Absent: scleral icterus, conjunctival injection, periorbital swelling Pupils: Present: normal accommodation Neck exam: Present: normal inspection, full ROM Respiratory exam: Present: normal lung sounds bilaterally. Absent: respiratory distress, wheezes, rales, rhonchi, stridor Cardiovascular Exam: Present: regular rate, normal rhythm, normal heart sounds. Absent: systolic murmur, diastolic murmur, rubs, gallop, clicks Neurological exam: Present: alert, oriented X3, CN II-XII intact Expanded Patient oriented to: Present: person, place, time Speech: Present: fluid speech Cranial nerves: EOM's Intact: Normal Motor strength exam: RUE: 5, LUE: 5, RLE: 5, LLE: 5 Eye Response: (4) open spontaneously Motor Response: (6) obeys commands Verbal Response: (5) oriented Richard Total: 15 Psychiatric exam: Present: normal affect, normal mood Skin exam: Present: warm, dry, intact, normal color. Absent: rash Course Vital Signs 06/11/23 06/11/23 06/11/23 19:10 20:56 22:43 Temperature 98.4 F Pulse Rate 76 93 87 Respiratory 18 18 18 Rate Blood Pressure 119/71 116/61 131/76 O2 Sat by Pulse 96 98 98 Oximetry EKG Findings - EKG Comments: EKG Findings:: Sinus rhythm ventricular rate 83. IA interval 185. QRS 90. QT 345. QTc 385. No ischemic changes. Medical Decision Making - Medical Decision Making Was pt. sent in by a medical professional or institution (, PA, FERRULER, urgent care, hospital, or skilled nursing...) When possible be specific @ -No Did you speak to anyone other than the patient for history (EMS, parent, family, police, friend...)? What history was obtained from this source @ -No Did you review nursing and triage notes (agree or disagree)? Why? @ -I reviewed and agree with nursing and triage notes Were old charts reviewed (outside hosp., previous admission, EMS record, old EKG, old radiological studies, urgent care reports/EKG's, skilled nursing records)? Report findings @ -No old charts were reviewed Differential Diagnosis (chest pain, altered mental status, abdominal pain women, abdominal pain men, vaginal bleeding, weakness, fever, dyspnea, syncope, headache, dizziness, GI bleed, back pain, seizure, CVA, palpatations, mental health, musculoskeletal)? @ -MDM Differential Altered Mental Status: Hypoglycemia, DKA, hypercapnia, ETOH, overdose, CO poisoning, trauma, myxedema coma, HTN encephalopathy, infection, encephalitis, psychosis, intercranial hemorrhage, hepatic encephalopathy, meningitis, CVA this is not meant to be an all-inclusive list EKG interpreted by me (3pts min.). @ -As above X-rays interpreted by me (1pt min.). @ -chest x-ray shows no acute process CT interpreted by me (1pt min.). @ -CT shows no acute intracranial process and nonspecific white matter changes, likely secondary to chronic small vessel ischemic disease U/S interpreted by me (1pt. min.). @ -None done What testing was considered but not performed or refused? (CT, X-rays, U/S, labs)? Why? @ -UA was considered but the patient was requesting immediate discharge home, stated that he would like to be discharged and come back if symptoms return for testing which I believe is reasonable What meds were considered but not given or refused? Why? @ -None Did you discuss the management of the patient with other professionals (professionals i.e. , PA, FERRULER, lab, RT, psych nurse, social media marketing specialist, ice seller, teacher, community service officer, rn case mgr)? Give summary @ -No Was smoking cessation discussed for >3mins.? @ -No Was critical care preformed (if so, how long)? @ -No Were there social determinants of health that impacted care today? How? (Homelessness, low income, unemployed, alcoholism, drug addiction, transportation, low edu. Level, literacy, decrease access to med. care, skilled nursing, rehab)? @ -No Was there de-escalation of care discussed even if they declined (Discuss DNR or withdrawal of care, Hospice)? DNR status @ -No What co-morbidities impacted this encounter? (DM, HTN, Smoking, COPD, CAD, Can cer, CVA, ARF, Chemo, Hep., AIDS, mental health diagnosis, sleep apnea, morbid obesity)? @ -None Was patient admitted / discharged? Hospital course, mention meds given and route, prescriptions, significant lab abnormalities, going to OR and other pertinent info. @ -78-year-old male presenting with chief complaint of what appeared to be a ne ar syncopal episode according to his . The patient laid his head down and started babbling and appeared to be going in and out of consciousness. Also no prior to this patient took a [place] and CBD for pain control as he was discharged from the hospital today after hip replacement. Patient states that he is currently asymptomatic. No focal neurological deficits and GCS 15 lab work shows WBC 12.8 hemoglobin 12. Negative troponin. No acute process seen on chest x-ray and brain CT. Patient is requesting discharge, no urinary symptoms, states that he would like to go home and come back if symptoms return or worsen for UA. I believe this is reasonable. He is going home with his . He is instructed to not combine CBD and pain medication. Follow-up with PCP. Report back to ER with any new or worsening symptoms. Discussed return parameters and answered all questions. Patient conveyed verbal understanding and agreed to the plan. I discussed this case in detail with my attending Dr. Vieira Undiagnosed new problem with uncertain prognosis? @ -No Drug Therapy requiring intensive monitoring for toxicity (Heparin, Nitro, Insulin, Cardizem)? @ -No Were any procedures done? @ -No Diagnosis/symptom? @ -Drug interaction Acute, or Chronic, or Acute on Chronic? @ -Acute Uncomplicated (without systemic symptoms) or Complicated (systemic symptoms)? @ -Uncomplicated Side effects of treatment? @ -No Exacerbation, Progression, or Severe Exacerbation? @ -No Poses a threat to life or bodily function? How? (Chest pain, [place], [place], pneumonia, PE, COPD, DKA, ARF, appy, cholecystitis, CVA, Diverticulitis, Homicidal, Suicidal, threat to staff... and all critical care pts) @ -No - Lab Data Result diagrams: 06/11/23 20:08 06/11/23 20:08 Lab Results 06/11/23 06/11/23 06/11/23 Range/Units 20:08 20:08 20:08 WBC 12.8 H (3.8-10.6) k/uL RBC 3.69 L (4.30-5.90) m/uL Hgb 12.0 L (13.0-17.5) gm/dL Hct 36.1 L (39.0-53.0) % MCV 97.7 (80.0-100.0) fL MCH 32.4 (25.0-35.0) pg MCHC 33.2 (31.0-37.0) g/dL RDW 12.9 (11.5-15.5) % Plt Count 185 (150-450) k/uL MPV 8.3 Neutrophils % 82 % Lymphocytes % 9 % Monocytes % 6 % Eosinophils % 0 % Basophils % 0 % Neutrophils # 10.4 H (1.3-7.7) k/uL Lymphocytes # 1.2 (1.0-4.8) k/uL Monocytes # 0.8 (0-1.0) k/uL Eosinophils # 0.1 (0-0.7) k/uL Basophils # 0.0 (0-0.2) k/uL PT 10.5 (9.0-12.0) sec INR 1.0 (<1.2) APTT 18.2 L (22.0-30.0) sec Sodium 136 L (137-145) mmol/L Potassium 4.6 (3.5-5.1) mmol/L Chloride 103 (98-107) mmol/L Carbon Dioxide 29 (22-30) mmol/L Anion Gap 4 mmol/L BUN 23 H (9-20) mg/dL Creatinine 0.80 (0.66-1.25) mg/dL Est GFR (CKD-EPI)AfAm >90 (>60 ml/min/1.73 sqM) Est GFR (CKD-EPI)NonAf 87 (>60 ml/min/1.73 sqM) Glucose 103 H (74-99) mg/dL Calcium 8.7 (8.4-10.2) mg/dL Magnesium 1.9 (1.6-2.3) mg/dL Total Bilirubin 0.9 (0.2-1.3) mg/dL AST 45 (17-59) U/L ALT 19 (4-49) U/L Alkaline Phosphatase 64 (38-126) U/L Troponin I (0.000-0.034) ng/mL Total Protein 5.8 L (6.3-8.2) g/dL Albumin 3.3 L (3.5-5.0) g/dL 06/11/23 Range/Units 20:08 WBC (3.8-10.6) k/uL RBC (4.30-5.90) m/uL Hgb (13.0-17.5) gm/dL Hct (39.0-53.0) % MCV (80.0-100.0) fL MCH (25.0-35.0) pg MCHC (31.0-37.0) g/dL RDW (11.5-15.5) % Plt Count (150-450) k/uL MPV Neutrophils % % Lymphocytes % % Monocytes % % Eosinophils % % Basophils % % Neutrophils # (1.3-7.7) k/uL Lymphocytes # (1.0-4.8) k/uL Monocytes # (0-1.0) k/uL Eosinophils # (0-0.7) k/uL Basophils # (0-0.2) k/uL PT (9.0-12.0) sec INR (<1.2) APTT (22.0-30.0) sec Sodium (137-145) mmol/L Potassium (3.5-5.1) mmol/L Chloride (98-107) mmol/L Carbon Dioxide (22-30) mmol/L Anion Gap mmol/L BUN (9-20) mg/dL Creatinine (0.66-1.25) mg/dL Est GFR (CKD-EPI)AfAm (>60 ml/min/1.73 sqM) Est GFR (CKD-EPI)NonAf (>60 ml/min/1.73 sqM) Glucose (74-99) mg/dL Calcium (8.4-10.2) mg/dL Magnesium (1.6-2.3) mg/dL Total Bilirubin (0.2-1.3) mg/dL AST (17-59) U/L ALT (4-49) U/L Alkaline Phosphatase (38-126) U/L Troponin I <0.012 (0.000-0.034) ng/mL Total Protein (6.3-8.2) g/dL Albumin (3.5-5.0) g/dL Disposition Clinical Impression: Drug interaction Disposition: HOME SELF-CARE Condition: Good Instructions (If sedation given, give patient instructions): Opioid Safety (ED) Additional Instructions: Follow-up with PCP and surgeon. Report back to ER with any new or worsening symptoms. Take medication as prescribed. Do not combine CBD with [place] or other opioids. Is patient prescribed a controlled substance at d/c from ED?: No Referrals: Hector Milan MD [Primary Care Provider] - 1-2 days Time of Disposition: 22:19
--- NOTE | 2023-06-11 21:27 | CT ---
EXAMINATION TYPE: CT brain wo con CT DLP: 1200.4 mGycm, Automated exposure control for dose reduction was used. DATE OF EXAM: 06/11/2023 9:13 PM COMPARISON: 10/02/2022. CLINICAL INDICATION:Male, 78 years old with history of syncope, AMS, syncope, AMS. pt had hip sx yest erday TECHNIQUE: Brain: Axial CT images of the brain were obtained with coronal and sagittal reformats created and rev iewed. Contrast used: None. Oral contrast used: None. FINDINGS: Brain: Extra-axial spaces: No abnormal extra-axial fluid collections. Ventricular system: Dilatation in proportion to cerebral atrophy. Cerebral parenchyma: Cerebral atrophy. No acute intraparenchymal hemorrhage or mass effect. The patricio -white junction is well differentiated. Scattered hypoattenuating areas are seen within the white mat ter. Cerebellum: Unremarkable. Mass effect: No evidence of midline shift. Intracranial vasculature: Atherosclerotic calcifications of the intracranial vessels. Soft tissues: Normal. Calvarium/osseous structures: No depressed skull fracture. Paranasal sinuses and mastoid air cells: Mild scattered paranasal sinus disease. Visualized orbits: Bilateral aphakia IMPRESSION: 1. No acute intracranial process. 2. Nonspecific white matter changes, likely secondary to chronic small vessel ischemic disease.
[2023-06-11 21:30] LABS: Basophils % (A) 0 %; Eosinophils # (A) 0.1 k/uL (0-0.7); Eosinophils % (A) 0 %; HCT 36.1 % (39.0-53.0); Lymphocytes # (A) 1.2 k/uL (1.0-4.8); Lymphocytes % (A) 9 %; MCH 32.4 pg (25.0-35.0); MCHC 33.2 g/dL (31.0-37.0); MCV 97.7 fL (80.0-100.0); Mean Platelet Volume 8.3; Monocytes # (A) 0.8 k/uL (0-1.0); Monocytes % (A) 6 %; Neutrophils # (A) 10.4 k/uL (1.3-7.7); Neutrophils % (A) 82 %; Platelet Count 185 k/uL (150-450); RBC 3.69 m/uL (4.30-5.90); RDW 12.9 % (11.5-15.5); WBC 12.8 k/uL (3.8-10.6)
[2023-06-11 21:36] LABS: ALT 19 U/L (4-49); AST 45 U/L (17-59); African American GFR (CKD) >90 (>60 ml/min/1.73 sqM); Albumin 3.3 g/dL (3.5-5.0); Alkaline Phosphatase 64 U/L (38-126); Anion Gap 4 mmol/L; Blood Urea Nitrogen 23 mg/dL (9-20); Calcium 8.7 mg/dL (8.4-10.2); Carbon Dioxide 29 mmol/L (22-30); Chloride 103 mmol/L (98-107); Glucose 103 mg/dL (74-99); Magnesium 1.9 mg/dL (1.6-2.3); Non-African American GFR(CKD) 87 (>60 ml/min/1.73 sqM); Potassium 4.6 mmol/L (3.5-5.1); Sodium 136 mmol/L (137-145); Total Bilirubin 0.9 mg/dL (0.2-1.3); Total Protein 5.8 g/dL (6.3-8.2)
--- NOTE | 2023-06-11 21:49 | XR ---
EXAMINATION TYPE: XR chest 2V DATE OF EXAM: 06/11/2023 9:19 PM COMPARISON: Chest radiographs from 02/27/2023 TECHNIQUE: XR chest 2V Frontal and lateral views of the chest. CLINICAL INDICATION:Male, 78 years old with history of syncope; FINDINGS: Lungs/Pleura: There is no evidence of pleural effusion, focal consolidation, or pneumothorax. Pulmonary vascularity: Unremarkable. Heart/mediastinum: Cardiomediastinal silhouette is unremarkable. Musculoskeletal: No acute osseous pathology. IMPRESSION: No acute cardiopulmonary disease/process.
[2023-06-11 21:59] LABS: Prothrombin Time 10.5 sec (9.0-12.0)
[2023-06-11 22:06] LABS: Partial Thromboplastin Time 18.2 sec (22.0-30.0)
[2023-06-11 22:45] VITALS: BP 131/76; PULSE 87
== END 2023-06-11 22:44 | disposition home or self-care (01) ==
LOC: EC 19:04
DX: T40.601A Poisoning by unspecified narcotics, accidental (unintentional), initial encounter (principal); Z91.09 Other allergy status, other than to drugs and biological substances
CPT/HCPCS: 36415; 70450; 71046; 80053; 83735; 84484; 85025; 85610; 85730; 93005; 99285

== ENCOUNTER → 2024-03-02 | Outpatient (CLI) | payer MEDICARE ==
--- NOTE | 2024-03-02 18:26 | CT ---
EXAMINATION TYPE: CT brain wo con DATE OF EXAM: 03/02/2024 COMPARISON: 06/11/2023 HISTORY: Stroke 10/04, change in memory CT DLP: 1242 mGycm Automated exposure control for dose reduction was used. Findings: The ventricles, basal cisterns and sulci over the convexities are within normal limits and there is n o mass effect or shift of midline structures. There is a remote small infarct in the left occipital lobe. There is mild decreased density in the pe riventricular white matter mild chronic ischemic white matter demyelination The posterior fossa including the brainstem, fourth ventricle and cerebellar pontine angles appear no rmal. Intraorbital contents appear normal and symmetric. Visualized paranasal sinuses and mastoid air cells are well aerated. The calvarium is intact. IMPRESSION: 1. No acute bleed or mass effect. 2. Small remote infarct in the left occipital lobe.
== END | disposition home or self-care (01) ==
LOC: RADCTMAIN 15:48
PROVIDERS: ATTEND Family Medicine
DX: R41.3 Other amnesia (principal); G45.9 Transient cerebral ischemic attack, unspecified
CPT/HCPCS: 70450

== ENCOUNTER → 2024-05-07 | Outpatient (CLI) | payer MEDICARE | END | disposition home or self-care (01) | LOC: LABWHC1 16:24 | PROVIDERS: ATTEND Psychiatry & Neurology Neurology | DX: Z53.9 Procedure and treatment not carried out, unspecified reason (principal) ==

== ENCOUNTER → 2024-05-25 | Outpatient (CLI) | payer MEDICARE ==
--- NOTE | 2024-05-26 09:43 | MR ---
EXAMINATION TYPE: MR brain wo con DATE OF EXAM: 05/25/2024 5:49 PM CLINICAL INDICATION:Male, 78 years old with history of I63.9 CEREBRAL INFARCTION; PHH, CVA, increased memory loss. COMPARISON: 10/03/2022. TECHNIQUE: Multi planar, multi sequence imaging was performed through the brain including: T1, T2, In version recovery, Diffusion weighted imaging, and gradient echo imaging. No gadolinium was given. FINDINGS: Small infarct in the cerebellum and left occipital lobe now demonstrates encephalomalacia. Mild cerebral atrophy with proportional dilation of ventricular system. Scattered foci of high T2 s ignal intensity are seen within the periventricular white matter. Midline structures show no abnormal ity. Diffusion-weighted imaging shows no evidence of restricted diffusion. The susceptibility weighte d images reveal left zaidi frontal lobe radiata micro-hemorrhage. The bone marrow signal is within normal limits. Paranasal sinuses and mastoid air cells: No significant paranasal sinus disease. Visualized orbits: Bilateral aphakia IMPRESSION: 1. No evidence of intracranial mass or acute/subacute infarct. 2. Nonspecific white matter changes, likely secondary to small vessel ischemic disease. 3. Left cerebellar hemisphere and left occipital lobe encephalomalacia from prior infarct.
== END | disposition home or self-care (01) ==
LOC: RADMRIMAIN 17:14
PROVIDERS: ATTEND Psychiatry & Neurology Neurology
DX: G93.89 Other specified disorders of brain (principal); I67.82 Cerebral ischemia
CPT/HCPCS: 70551

== ENCOUNTER 2024-09-25 15:50 | Observation (INO) | payer MEDICARE ==
[2024-09-25] MEDS: ONDANSETRON 4 MG/2 ML VIAL IVP STA (17:02)
[2024-09-25] MEDS: MORPHINE SULFATE 4 MG/ML SYRINGE IVP STA (17:02)
[2024-09-25] MEDS: SODIUM CHLORIDE 0.9% 500 ML 500 ML IV STA (17:03)
[2024-09-25 17:09] LABS: Basophils % (A) 0 %; Eosinophils # (A) 0.1 k/uL (0-0.7); Eosinophils % (A) 1 %; HCT 45.4 % (39.0-53.0); HGB 14.7 gm/dL (13.0-17.5); Lymphocytes # (A) 1.7 k/uL (1.0-4.8); Lymphocytes % (A) 16 %; MCHC 32.4 g/dL (31.0-37.0); MCV 98.7 fL (80.0-100.0); Mean Platelet Volume 7.5; Monocytes # (A) 0.5 k/uL (0-1.0); Monocytes % (A) 4 %; Neutrophils # (A) 8.1 k/uL (1.3-7.7); Neutrophils % (A) 77 %; Platelet Count 245 k/uL (150-450); RDW 12.5 % (11.5-15.5); WBC 10.6 k/uL (3.8-10.6)
[2024-09-25 17:37] LABS: ALT 16 U/L (4-49); AST 27 U/L (17-59); African American GFR (CKD) 65 (>60 ml/min/1.73 sqM); Alkaline Phosphatase 83 U/L (38-126); Amylase 43 U/L (30-110); Anion Gap 3 mmol/L; Blood Urea Nitrogen 28 mg/dL (9-20); Calcium 9.1 mg/dL (8.4-10.2); Carbon Dioxide 33 mmol/L (22-30); Chloride 105 mmol/L (98-107); Glucose 112 mg/dL (74-99); Lipase 70 U/L (23-300); Non-African American GFR(CKD) 56 (>60 ml/min/1.73 sqM); Potassium 4.5 mmol/L (3.5-5.1); Sodium 141 mmol/L (137-145); Total Bilirubin 0.5 mg/dL (0.2-1.3); Total Protein 6.4 g/dL (6.3-8.2)
--- NOTE | 2024-09-25 17:41 | CT ---
EXAMINATION TYPE: CT abdomen pelvis wo con DATE OF EXAM: 09/25/2024 4:47 PM COMPARISON: None. CLINICAL INDICATION: Male, 79 years old with history of abdominal pain, R flank pain, RT FLANK PAIN TECHNIQUE: Axial images were obtained from above the diaphragm to the pubic rami in the axial plane a t 5 mm thick sections. Reconstructed images are reviewed on the computer in the coronal plane. CONTRAST: mL of . Study performed without Oral Contrast DLP: 795.1 mGycm, Automated exposure control for dose reduction was used. FINDINGS: Limited CT sections are obtained the lung bases. The lung bases are clear. CT ABDOMEN: Liver: Normal Spleen: Normal Pancreas: Normal Adrenal glands: The adrenal glands are normal. Gallbladder: Normal Kidneys: No masses are evident. Right hydronephrosis present. There is a proximal right ureteral ston e measuring 0.8 cm obstructing. Distal ureters appear normal There is a cyst at the inferior pole lef t kidney measuring 5.6 cm. Nonobstructing renal stones are in the inferior bilateral kidneys. Aorta: Transverse dimension of the distal abdominal aorta is 4.4 cm. Inferior vena cava: Normal. CT PELVIS: Bilateral hip prostheses limit lower pelvis evaluation Loops of bowel within the abdomen and pelvis are normal. This study is without oral contrast limi ting bowel evaluation. Appendix: Normal as visualized. Urinary bladder: Normal. Genitourinary structures: Prostate appears normal Osseous structures: No suspicious lytic or sclerotic lesions. Spondylolysis of L5 is present. Degener ative disc changes are present L4-5, L3-4 IMPRESSION: 1. 0.8 cm obstructing proximal right ureteral stone with mild right hydronephrosis 2. Nonobstructing bilateral renal stones. 3. Large inferior left renal cyst [facility], , 09/25/2024 5:39 PM
[2024-09-25] MEDS: HYDROmorphone 0.5 MG/0.5 ML SYRINGE IVP STA (18:25)
[2024-09-25 18:39] LABS: Appearance,Urine Cloudy (Clear); Bacteria,Urine Occasional /hpf; Bilirubin,Urine Negative (Negative); Blood,Urine Large (Negative); Color,Urine Light Red; Glucose,Urine (UA) Negative (Negative); Ketones,Urine Negative (Negative); Leukocyte Esterase,Urine Small (Negative); Mucus,Urine Moderate /hpf; Nitrite,Urine Negative (Negative); PH, Urine 6.5 (5.0-8.0); Protein,Urine 1+ (Negative); RBC,Urine >182 /hpf (0-5); Specific Gravity,Urine 1.028 (1.001-1.035); Squamous Epithelial Cell,Urine 1 /hpf (0-4); Urobilinogen,Urine <2.0 mg/dL (<2.0); WBC,Urine 10 /hpf (0-5)
[2024-09-25] MEDS ORDERED: NALOXONE 0.4 MG/ML 1 ML VIAL IV PRN (19:09)
[2024-09-25] MEDS ORDERED: ONDANSETRON 4 MG/2 ML VIAL IVP PRN (19:09)
[2024-09-25] MEDS ORDERED: HYDROmorphone 0.5 MG/0.5 ML SYRINGE IVP PRN (19:09)
--- NOTE | 2024-09-25 19:16 | ED ---
Back Pain HPI - General Chief Complaint: Back Pain/Injury Stated Complaint: R side pain Time Seen by Provider: 09/25/24 16:10 Source: patient, family Limitations: no limitations - History of Present Illness Initial Comments: 79-year-old male presenting with chief complaint of right side pain. Pain started abruptly this afternoon. Pain travels into the right abdomen and does have a little bit of radiation to the back he reports. He does have history of kidney stones many years ago. He denies any injury or trauma. No radiation of pain down the leg. No loss of bowel or bladder control or saddle paresthesia. Some nausea no vomiting. No dysuria. States that his urine is a bit darker. He is having some urgency and frequency. No fever. - Related Data Home Medications Medication Instructions Recorded Confirmed Multivitamins, Thera [Multivitamin 1 tab PO DAILY 09/25/24 09/25/24 (formulary)] Allergies Allergy/AdvReac Type Severity Reaction Status Date / Time adhesive tape Allergy Rash/Hives Verified 09/25/24 19:39 Review of Systems ROS Statement: Those systems with pertinent positive or pertinent negative responses have been documented in the HPI. ROS Other: All systems not noted in ROS Statement are negative. 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 History of Any Multi-Drug Resistant Organisms: None Reported Past Surgical History: Back Surgery, Joint Replacement Additional Past Surgical History / Comment(s): left hip replacement Past Anesthesia/Blood Transfusion Reactions: No Reported Reaction Past Psychological History: No Psychological Hx Reported Smoking Status: Never smoker Past Alcohol Use History: None Reported Past Drug Use History: None Reported - Past Family History Mother Family Medical History: No Reported History Father Family Medical History: Cancer Sister(s) Family Medical History: Cancer General Exam Limitations: no limitations General appearance: alert, in no apparent distress Head exam: Present: atraumatic, normocephalic, normal inspection Eye exam: Present: normal appearance, EOMI Neck exam: Present: normal inspection. Absent: meningismus Respiratory exam: Present: normal lung sounds bilaterally. Absent: respiratory distress, wheezes, rales, rhonchi, stridor Cardiovascular Exam: Present: regular rate, normal rhythm, normal heart sounds. Absent: systolic murmur, diastolic murmur, rubs, gallop, clicks GI/Abdominal exam: Present: soft, tenderness. Absent: distended, guarding, rebound, rigid Neurological exam: Present: alert, oriented X3 Psychiatric exam: Present: normal affect, normal mood Skin exam: Present: warm, dry Course Vital Signs 09/25/24 09/25/24 09/25/24 15:54 18:23 20:59 Temperature 98.3 F 98.2 F Pulse Rate 58 L 53 L 65 Respiratory 18 18 18 Rate Blood Pressure 163/64 149/73 149/80 O2 Sat by Pulse 98 94 L 95 Oximetry Medical Decision Making - Medical Decision Making Was pt. sent in by a medical professional or institution (, PA, DIRECTOR OF MARKET ANALYSIS, urgent care, hospital, or jail...) When possible be specific @ -No Did you speak to anyone other than the patient for history (EMS, parent, family, police, friend...)? What history was obtained from this source @ -Son Did you review nursing and triage notes (agree or disagree)? Why? @ -I reviewed and agree with nursing and triage notes Were old charts reviewed (outside hosp., previous admission, EMS record, old EKG, old radiological studies, urgent care reports/EKG's, jail records)? Report findings @ -No old charts were reviewed Differential Diagnosis (chest pain, altered mental status, abdominal pain women, abdominal pain men, vaginal bleeding, weakness, fever, dyspnea, syncope, headache, dizziness, GI bleed, back pain, seizure, CVA, palpatations, mental health, musculoskeletal)? @ -MDM Differential Abdominal Pain Men: Appendicitis, cholecystitis, diverticulosis, ischemic bowel, pancreatitis, hepatitis, UTI, gastroenteritis, AAA, incarcerated hernia, bowel obstruction, constipation, inflammatory bowel, hepatitis, peptic ulcer disease, splenic infarction, perforated viscus, testicular torsion... This is not meant to be an all-inclusive list EKG interpreted by me (3pts min.). @ -As above X-rays interpreted by me (1pt min.). @ -None done CT interpreted by me (1pt min.). @ -CT shows 8 mm obstructing proximal right ureteral stone with mild right hydronephrosis. Nonobstructing bilateral renal stones. Large inferior left re nal cyst U/S interpreted by me (1pt. min.). @ -None done What testing was considered but not performed or refused? (CT, X-rays, U/S, labs)? Why? @ -None What meds were considered but not given or refused? Why? @ -None Did you discuss the management of the patient with other professionals (carmen moreno i.e. , PA, DIRECTOR OF MARKET ANALYSIS, lab, RT, psych nurse, social sciences department chair, portrait studio photographer, teacher, community chest officer, case monitor)? Give summary @ -I spoke with Dr. Celis who accepts admission. Patient placed NPO after midnight and informed that he may have a stent placed tomorrow per Dr. Celis Was smoking cessation discussed for >3mins.? @ -No Was critical care preformed (if so, how long)? @ -No Were there social determinants of health that impacted care today? How? (Homelessness, low income, unemployed, alcoholism, drug addiction, transportation, low edu. Level, literacy, decrease access to med. care, [facility], rehab)? @ -No Was there de-escalation of care discussed even if they declined (Discuss DNR or withdrawal of care, Hospice)? DNR status @ -No What co-morbidities impacted this encounter? (DM, HTN, Smoking, COPD, CAD, Cancer, CVA, ARF, Chemo, Hep., AIDS, mental health diagnosis, sleep apnea, morbid obesity)? @ -None Was patient admitted / discharged? Hospital course, mention meds given and route , prescriptions, significant lab abnormalities, going to OR and other pertinent info. @ -79-year-old male presented with chief complaint of right side pain that started abruptly today. No leukocytosis or anemia. Urine shows large blood and small leukocytes with greater than 182 RBCs and [address] is positive for 8 mm obstructing proximal ureteral stone. After morphine and Dilaudid patient o nly reports mild pain relief. Patient will be admitted, stent placement is anticipated tomorrow. Patient is agreeable with this plan. I discussed this case with my attending Dr. Clayton Undiagnosed new problem with uncertain prognosis? @ -No Drug Therapy requiring intensive monitoring for toxicity (Heparin, Nitro, Insulin, Cardizem)? @ -No Were any procedures done? @ -No Diagnosis/symptom? @ -Kidney stone Acute, or Chronic, or Acute on Chronic? @ -Acute Uncomplicated (without systemic symptoms) or Complicated (systemic symptoms)? @ -Complicated Side effects of treatment? @ -No Exacerbation, Progression, or Severe Exacerbation? @ -No Poses a threat to life or bodily function? How? (Chest pain, [place], CA, pneumonia, PE, COPD, DKA, ARF, appy, cholecystitis, CVA, Diverticulitis, Homicidal, Suicidal, threat to staff... and all critical care pts) @ - - Lab Data Result diagrams: 09/25/24 16:56 09/25/24 16:56 Lab Results 09/25/24 09/25/24 09/25/24 Range/Units 16:56 16:56 16:56 WBC 10.6 (3.8-10.6) k/uL RBC 4.60 (4.30-5.90) m/uL Hgb 14.7 (13.0-17.5) gm/dL Hct 45.4 (39.0-53.0) % MCV 98.7 (80.0-100.0) fL MCH 32.0 (25.0-35.0) pg MCHC 32.4 (31.0-37.0) g/dL RDW 12.5 (11.5-15.5) % Plt Count 245 (150-450) k/uL MPV 7.5 Neutrophils % 77 % Lymphocytes % 16 % Monocytes % 4 % Eosinophils % 1 % Basophils % 0 % Neutrophils # 8.1 H (1.3-7.7) k/uL Lymphocytes # 1.7 (1.0-4.8) k/uL Monocytes # 0.5 (0-1.0) k/uL Eosinophils # 0.1 (0-0.7) k/uL Basophils # 0.0 (0-0.2) k/uL Sodium 141 (137-145) mmol/L Potassium 4.5 (3.5-5.1) mmol/L Chloride 105 (98-107) mmol/L Carbon Dioxide 33 H (22-30) mmol/L Anion Gap 3 mmol/L BUN 28 H (9-20) mg/dL Creatinine 1.23 (0.66-1.25) mg/dL Est GFR (CKD-EPI)AfAm 65 (>60 ml/min/1.73 sqM) Est GFR (CKD-EPI)NonAf 56 (>60 ml/min/1.73 sqM) Glucose 112 H (74-99) mg/dL Plasma Lactic Acid Aram 1.8 (0.7-2.0) mmol/L Calcium 9.1 (8.4-10.2) mg/dL Total Bilirubin 0.5 (0.2-1.3) mg/dL AST 27 (17-59) U/L ALT 16 (4-49) U/L Alkaline Phosphatase 83 (38-126) U/L Total Protein 6.4 (6.3-8.2) g/dL Albumin 4.0 (3.5-5.0) g/dL Amylase 43 (30-110) U/L Lipase 70 (23-300) U/L Urine Color Urine Appearance (Clear) Urine pH (5.0-8.0) Ur Specific [place] (1.001-1.035) Urine Protein (Negative) Urine Glucose (UA) (Negative) Urine Ketones (Negative) Urine Blood (Negative) Urine Nitrite (Negative) Urine Bilirubin (Negative) Urine Urobilinogen (<2.0) mg/dL Ur Leukocyte Esterase (Negative) Urine RBC (0-5) /hpf Urine WBC (0-5) /hpf Urine WBC Clumps (None) /hpf Ur Squamous Epith Cells (0-4) /hpf Urine Bacteria (None) /hpf Urine Mucus (None) /hpf 09/25/24 Range/Units 18:00 WBC (3.8-10.6) k/uL RBC (4.30-5.90) m/uL Hgb (13.0-17.5) gm/dL Hct (39.0-53.0) % MCV (80.0-100.0) fL MCH (25.0-35.0) pg MCHC (31.0-37.0) g/dL RDW (11.5-15.5) % Plt Count (150-450) k/uL MPV Neutrophils % % Lymphocytes % % Monocytes % % Eosinophils % % Basophils % % Neutrophils # (1.3-7.7) k/uL Lymphocytes # (1.0-4.8) k/uL Monocytes # (0-1.0) k/uL Eosinophils # (0-0.7) k/uL Basophils # (0-0.2) k/uL Sodium (137-145) mmol/L Potassium (3.5-5.1) mmol/L Chloride (98-107) mmol/L Carbon Dioxide (22-30) mmol/L Anion Gap mmol/L BUN (9-20) mg/dL Creatinine (0.66-1.25) mg/dL Est GFR (CKD-EPI)AfAm (>60 ml/min/1.73 sqM) Est GFR (CKD-EPI)NonAf (>60 ml/min/1.73 sqM) Glucose (74-99) mg/dL Plasma Lactic Acid Aram (0.7-2.0) mmol/L Calcium (8.4-10.2) mg/dL Total Bilirubin (0.2-1.3) mg/dL AST (17-59) U/L ALT (4-49) U/L Alkaline Phosphatase (38-126) U/L Total Protein (6.3-8.2) g/dL Albumin (3.5-5.0) g/dL Amylase (30-110) U/L Lipase (23-300) U/L Urine Color Light Red Urine Appearance Cloudy (Clear) Urine pH 6.5 (5.0-8.0) Ur Specific [place] 1.028 (1.001-1.035) Urine Protein 1+ H (Negative) Urine Glucose (UA) Negative (Negative) Urine Ketones Negative (Negative) Urine Blood Large H (Negative) Urine Nitrite Negative (Negative) Urine Bilirubin Negative (Negative) Urine Urobilinogen <2.0 (<2.0) mg/dL Ur Leukocyte Esterase Small H (Negative) Urine RBC >182 H (0-5) /hpf Urine WBC 10 H (0-5) /hpf Urine WBC Clumps Few H (None) /hpf Ur Squamous Epith Cells 1 (0-4) /hpf Urine Bacteria Occasional H (None) /hpf Urine Mucus Moderate H (None) /hpf Disposition Clinical Impression: Kidney stone Disposition: ADMITTED IP TO THIS [facility] Condition: Fair Time of Disposition: 19:16
[2024-09-25] MEDS: SODIUM CHLORIDE 0.9% 1,000 ML IV SCH (19:50)
[2024-09-25] MEDS: HYDROmorphone 1 MG/ML 1 ML SYRINGE IVP PRN (23:55)
[2024-09-26] MEDS: KETOROLAC 15 MG/ML 1 ML VIAL IVP PRN (05:10)
[2024-09-26 09:13] VITALS: PULSE 59; RESP 16
--- NOTE | 2024-09-26 09:53 | P.GSHP ---
History of Present Illness H&P Date: 09/26/24 Chief Complaint: Right renal colic The patient is a 79-year-old white male with a history of kidney stones in the remote past, all of which she has passed. Yesterday, he experienced acute onset of right flank pain radiating to the right abdomen. His urine was dark but he denies gross hematuria per se. He presented to the ER. CT scan showed an obstructing 8 mm right proximal ureteral calculus. He was admitted with intractable symptoms but states that he has been comfortable overnight and this morning. 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 History of Any Multi-Drug Resistant Organisms: None Reported Past Surgical History: Back Surgery, Joint Replacement Additional Past Surgical History / Comment(s): left hip replacement Past Anesthesia/Blood Transfusion Reactions: No Reported Reaction Past Psychological History: No Psychological Hx Reported Smoking Status: Never smoker Past Alcohol Use History: None Reported Past Drug Use History: None Reported - Past Family History Mother Family Medical History: No Reported History Father Family Medical History: Cancer Sister(s) Family Medical History: Cancer Medications and Allergies Home Medications Medication Instructions Recorded Confirmed Type Multivitamins, Thera [Multivitamin 1 tab PO DAILY 09/25/24 09/25/24 History (formulary)] Allergies Allergy/AdvReac Type Severity Reaction Status Date / Time adhesive tape Allergy Rash/Hives Verified 09/25/24 19:39 Surgical - Exam Vital Signs Temp Pulse Resp BP Pulse Ox 98.3 F 58 L 18 163/64 98 09/25/24 15:54 09/25/24 15:54 09/25/24 15:54 09/25/24 15:54 09/25/24 15:54 - General well developed, well nourished, no distress - Neck no masses, trachea midline - Respiratory normal respiratory effort - Abdomen Abdomen: soft, non tender, no guarding, no rigid, no rebound - Psychiatric oriented to time, oriented to person, oriented to place, speech is normal, memory intact Results - Labs 09/25/24 16:56 09/25/24 16:56 Abnormal Lab Results - Last 24 Hours (Table) 09/25/24 09/25/24 09/25/24 Range/Units 16:56 16:56 18:00 Neutrophils # 8.1 H (1.3-7.7) k/uL Carbon Dioxide 33 H (22-30) mmol/L BUN 28 H (9-20) mg/dL Glucose 112 H (74-99) mg/dL Urine Protein 1+ H (Negative) Urine Blood Large H (Negative) Ur Leukocyte Esterase Small H (Negative) Urine RBC >182 H (0-5) /hpf Urine WBC 10 H (0-5) /hpf Urine WBC Clumps Few H (None) /hpf Urine Bacteria Occasional H (None) /hpf Urine Mucus Moderate H (None) /hpf Diabetes panel 09/25/24 Range/Units 16:56 Sodium 141 (137-145) mmol/L Potassium 4.5 (3.5-5.1) mmol/L Chloride 105 (98-107) mmol/L Carbon Dioxide 33 H (22-30) mmol/L BUN 28 H (9-20) mg/dL Creatinine 1.23 (0.66-1.25) mg/dL Glucose 112 H (74-99) mg/dL Calcium 9.1 (8.4-10.2) mg/dL AST 27 (17-59) U/L ALT 16 (4-49) U/L Alkaline Phosphatase 83 (38-126) U/L Total Protein 6.4 (6.3-8.2) g/dL Albumin 4.0 (3.5-5.0) g/dL Calcium panel 09/25/24 Range/Units 16:56 Calcium 9.1 (8.4-10.2) mg/dL Albumin 4.0 (3.5-5.0) g/dL Pituitary panel 09/25/24 Range/Units 16:56 Sodium 141 (137-145) mmol/L Potassium 4.5 (3.5-5.1) mmol/L Chloride 105 (98-107) mmol/L Carbon Dioxide 33 H (22-30) mmol/L BUN 28 H (9-20) mg/dL Creatinine 1.23 (0.66-1.25) mg/dL Glucose 112 H (74-99) mg/dL Calcium 9.1 (8.4-10.2) mg/dL Adrenal panel 09/25/24 Range/Units 16:56 Sodium 141 (137-145) mmol/L Potassium 4.5 (3.5-5.1) mmol/L Chloride 105 (98-107) mmol/L Carbon Dioxide 33 H (22-30) mmol/L BUN 28 H (9-20) mg/dL Creatinine 1.23 (0.66-1.25) mg/dL Glucose 112 H (74-99) mg/dL Calcium 9.1 (8.4-10.2) mg/dL Total Bilirubin 0.5 (0.2-1.3) mg/dL AST 27 (17-59) U/L ALT 16 (4-49) U/L Alkaline Phosphatase 83 (38-126) U/L Total Protein 6.4 (6.3-8.2) g/dL Albumin 4.0 (3.5-5.0) g/dL - Imaging CT scan - abdomen: report reviewed, image reviewed Assessment and Plan Assessment: CT scan shows mild right hydronephrosis due to an 8 mm right proximal ureteral calculus, just distal to the UPJ. There are 3 additional right renal calculi measuring up to 6.5 mm in size. Several smaller nonobstructing left renal calculi are also seen. (1) Calculus of ureter Current Visit: Yes Status: Acute Code(s): N20.1 - CALCULUS OF URETER SNOMED Code(s): 65031300 (2) Hydronephrosis with renal and ureteral calculous obstruction Current Visit: Yes Status: Acute Code(s): N13.2 - HYDRONEPHROSIS WITH RENAL AND URETERAL CALCULOUS OBSTRUCTION SNOMED Code(s): 309385104 Plan: I had a lengthy discussion with the patient regarding his 8 mm right proximal ureteral calculus. I explained to him that medical expulsion therapy is an option, but that the calculus only has approximately a 20% chance of passing. We discussed the pros and cons of surgical treatment options in detail, these being extracorporal shockwave lithotripsy (ESWL) and ureteroscopy with laser lithotripsy. I have offered to place a ureteral stent today, which he declines. He wishes to proceed with medical expulsion therapy. He will be discharged home today with prescriptions for tamsulosin, Toradol, and [place], and he has been instructed to strain his urine. A KUB x-ray will be obtained prior to discharge. Arrangements will be made for him to follow-up with me in the office in approximately 3 weeks, at which time a repeat KUB x-ray will be obtained. He has been advised to contact my office if he develops recurrent intractable symptoms in the meantime. Time with Patient: Greater than 30
--- NOTE | 2024-09-26 11:15 | XR ---
EXAMINATION TYPE: XR KUB DATE OF EXAM: 09/26/2024 10:12 AM COMPARISON: None. CLINICAL INDICATION: Male, 79 years old with history of Right ureteral calculus, TECHNIQUE: XR KUB view(s) obtained. FINDINGS: There is a normal bowel gas pattern. Psoas margins are normal. No organomegaly is present. Bilateral hip prostheses are present. There 0.8 cm is a calcification adjacent to the transverse process on the right at L3. Inferior pole right renal stone is present measuring 0.8 cm. IMPRESSION: 1. Right renal and possible right ureteral stone. [facility], , 09/26/2024 11:13 AM
[2024-09-26 14:04] VITALS: BP 105/65; TEMP 98.1
--- NOTE | 2024-09-26 14:46 | P.CONS ---
History of Present Illness - Reason for Consult Consult date: 09/26/24 Medical management - History of Present Illness History of present illness; patient is a 79-year-old gentleman with past medical history significant for kidney stone presented the ER because of right-sided flank pain. Patient stated that he was all right yesterday when he started experiencing sudden onset of right-sided flank pain, which is sharp in character, intermittent, radiating down right groin, no aggravating or relieving factors associated with this flank pain. Patient did notice that his urine became darker in color. There was no complaint of fever or chills. There is no complaint of nausea, vomiting. There is no complaint of altered bowel movements. Because of this flank pain, patient came to the ER Initial lab work done in the ER showed WBC 10.6, hemoglobin 14.7, platelet count 245, sodium 141, potassium 4.5, BUN 28, creatinine 1.23, glucose 112 UA done showed large amount of blood, urine RBC greater than 182 CT abdominal pelvis done showed 0.8 cm obstructing proximal right ureteral stone with mild hydronephrosis Patient admitted to internal medicine service REVIEW OF SYSTEMS: CONSTITUTIONAL: No fever, no malaise, no fatigue. HEENT: No recent visual problems or hearing problems. Denied any sore throat. CARDIOVASCULAR: No chest pain, orthopnea, PND, no palpitations, no syncope. PULMONARY: No shortness of breath, no cough, no hemoptysis. GASTROINTESTINAL: As mentioned above NEUROLOGICAL: No headaches, no weakness, no numbness. HEMATOLOGICAL: Denies any bleeding or petechiae. GENITOURINARY: Denies any burning micturition, frequency, or urgency. MUSCULOSKELETAL/RHEUMATOLOGICAL: Denies any joint pain, swelling, or any muscle pain. ENDOCRINE: Denies any polyuria or polydipsia. The rest of the 14-point review of systems is negative. PHYSICAL EXAMINATION: GENERAL: The patient is alert and oriented x3, not in any acute distress. Well developed, well nourished. HEENT: Pupils are round and equally reacting to light. EOMI. No scleral icterus. No conjunctival pallor. Normocephalic, atraumatic. No pharyngeal erythema. No thyromegaly. CARDIOVASCULAR: S1 and S2 present. No murmurs, rubs, or gallops. PULMONARY: Chest is clear to auscultation, no wheezing or crackles. ABDOMEN: Soft, nontender, nondistended, normoactive bowel sounds. No palpable organomegaly. MUSCULOSKELETAL: No joint swelling or deformity. EXTREMITIES: No cyanosis, clubbing, or pedal edema. NEUROLOGICAL: Gross neurological examination did not reveal any focal deficits. SKIN: No rashes. Assessment and plan Right-sided ureteral stone with hydronephrosis History of kidney stones Monitor vital signs Monitor CBC Monitor CMP Ordered antiemetics Ordered IV fluids Ordered pain management with as needed Dilaudid Urology consulted Labs and medication were reviewed.. Continue same treatment. Continue with symptomatic treatment. Resume home medication. Monitor labs and vitals. DVT and GI prophylaxis. Further recommendations as per clinical course of the patient Dictation was produced using [employer] dictation software. please excuse any grammatical, word or spelling errors. 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 History of Any Multi-Drug Resistant Organisms: None Reported Past Surgical History: Back Surgery, Joint Replacement Additional Past Surgical History / Comment(s): left hip replacement Past Anesthesia/Blood Transfusion Reactions: No Reported Reaction Past Psychological History: No Psychological Hx Reported Smoking Status: Never smoker Past Alcohol Use History: None Reported Past Drug Use History: None Reported - Past Family History Mother Family Medical History: No Reported History Father Family Medical History: Cancer Sister(s) Family Medical History: Cancer Medications and Allergies Home Medications Medication Instructions Recorded Confirmed Type Multivitamins, Thera [Multivitamin 1 tab PO DAILY 09/25/24 09/25/24 History (formulary)] HYDROcodone/APAP 5-325MG [[place] 1 - 2 tab PO Q6HR PRN #6 tab 09/26/24 Rx 5-325] Ketorolac [Toradol] 10 mg PO Q6HR PRN #10 tab 09/26/24 Rx Tamsulosin [Flomax] 0.4 mg PO DAILY #30 cap 09/26/24 Rx Allergies Allergy/AdvReac Type Severity Reaction Status Date / Time adhesive tape Allergy Rash/Hives Verified 09/25/24 19:39 Physical Exam Vitals: Vital Signs Temp Pulse Pulse Resp BP BP Pulse Ox 09/26/24 07:07 98.4 F 59 L 16 104/55 97 09/26/24 02:00 98.2 F 70 14 120/66 97 09/25/24 20:59 98.2 F 65 18 149/80 95 09/25/24 18:23 53 L 18 149/73 94 L 09/25/24 15:54 98.3 F 58 L 18 163/64 98 Intake and Output 09/25/24 09/26/24 09/26/24 22:59 06:59 14:59 Other: # Voids 1 Weight 86.183 kg 86.183 kg Results CBC & Chem 7: 09/25/24 16:56 09/25/24 16:56 Labs: Abnormal Lab Results - Last 24 Hours (Table) 09/25/24 09/25/24 09/25/24 Range/Units 16:56 16:56 18:00 Neutrophils # 8.1 H (1.3-7.7) k/uL Carbon Dioxide 33 H (22-30) mmol/L BUN 28 H (9-20) mg/dL Glucose 112 H (74-99) mg/dL Urine Protein 1+ H (Negative) Urine Blood Large H (Negative) Ur Leukocyte Esterase Small H (Negative) Urine RBC >182 H (0-5) /hpf Urine WBC 10 H (0-5) /hpf Urine WBC Clumps Few H (None) /hpf Urine Bacteria Occasional H (None) /hpf Urine Mucus Moderate H (None) /hpf
[2024-09-27] MEDS ORDERED: MULTIVITAMINS, THERA 1 EACH TAB PO SCH (09:00)
== END 2024-09-26 15:50 | disposition home or self-care (01) ==
LOC: EC 15:50 → 4SSUR 21:39
PROVIDERS: ADMIT Urology; ATTEND Urology
DX: N13.2 Hydronephrosis with renal and ureteral calculous obstruction (principal); R39.15 Urgency of urination; R35.0 Frequency of micturition; Z79.899 Other long term (current) drug therapy; Z91.048 Other nonmedicinal substance allergy status; Z87.442 Personal history of urinary calculi
CPT/HCPCS: 96376 ×2; 96375 ×2; 96361; 96374; 99285; 36415; 80053; 82150; 83605; 83690; 85025; 81001; 74018; 74176; G0378 ×2; J2270; J2405; J1171 ×2; J1885

== ENCOUNTER → 2024-10-19 | Outpatient (CLI) | payer MEDICARE ==
--- NOTE | 2024-10-19 15:48 | XR ---
EXAMINATION TYPE: XR KUB DATE OF EXAM: 10/19/2024 1:33 PM COMPARISON: 09/26/2024 CLINICAL INDICATION: Male, 79 years old with history of N20.0 CALCULUS OF KIDNEY, TECHNIQUE: XR KUB view(s) obtained. FINDINGS: There is a normal bowel gas pattern. Psoas margins are normal. No organomegaly is present. There is a 0.6 and 0.3 cm calcification at the inferior pole left kidney. There is a 0.4 cm calcific ation mid pole right kidney. A couple of smaller 0.3 cm calcifications are at the mid inferior pole r ight kidney There is a calcification measuring 0.9 cm may be a mid right ureteral stone over the right sacral ala r. This has moved from the prior examination. IMPRESSION: 1. Md right sacral region calcification measuring 0.9 cm may be a ureteral stone 2. Bilateral small renal stones [facility], , 10/19/2024 3:46 PM
== END | disposition home or self-care (01) ==
LOC: RADXRMAIN 13:21
PROVIDERS: ATTEND Family Medicine
DX: N20.0 Calculus of kidney (principal); M53.3 Sacrococcygeal disorders, not elsewhere classified
CPT/HCPCS: 74018

== ENCOUNTER 2024-10-26 06:04 | Day surgery (SDC) | payer MEDICARE ==
[2024-10-23 11:33] VITALS: BMI 28.5
--- NOTE | 2024-10-25 13:08 | P.GSHP ---
History of Present Illness H&P Date: 10/25/24 Chief Complaint: Right flank pain The patient is a 79-year-old white male with a history of urolithiasis. He previously underwent ESWL in approximately 1999. He now presents with a 1 month history of right flank pain, which was initially severe. CT scan performed on September 25 showed an obstructing 8 mm right proximal ureteral calculus, as well as bilateral renal calculi. KUB x-ray performed on October 19 showed that the calculus had migrated to the level of S1. Alternative treatment options were reviewed, including medical expulsion therapy, extracorporal shockwave lithotripsy (ESWL), and ureteroscopic removal of the calculus. He has elected to undergo ESWL and comes for this reason. He is aware that the procedure will be performed by Dr. Recinos. 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 History of Any Multi-Drug Resistant Organisms: None Reported Past Surgical History: Back Surgery, Joint Replacement Additional Past Surgical History / Comment(s): kana hip replacement,kana cataract Past Anesthesia/Blood Transfusion Reactions: No Reported Reaction Additional Past Anesthesia/Blood Transfusion Reaction / Comment(s): no hx blood transfusion Smoking Status: Never smoker - Past Family History Mother Family Medical History: No Reported History Father Family Medical History: Cancer Sister(s) Family Medical History: Cancer Medications and Allergies Home Medications Medication Instructions Recorded Confirmed Type Multivitamins, Thera [Multivitamin 1 tab PO DAILY 09/25/24 10/23/24 History (formulary)] HYDROcodone/APAP 5-325MG [[place] 1 - 2 tab PO Q6HR PRN #6 tab 09/26/24 10/23/24 Rx 5-325] Ketorolac [Toradol] 10 mg PO Q6HR PRN #10 tab 09/26/24 10/23/24 Rx Cholecalciferol [Vitamin D3 (25 50 mcg PO DAILY 10/23/24 10/23/24 History Mcg = 1000 Iu)] Donepezil HCl [Aricept] 10 mg PO QAM 10/23/24 10/23/24 History Tamsulosin [Flomax] 0.4 mg PO QAM 10/23/24 10/23/24 History Vitamin B Complex 1 each PO DAILY 10/23/24 10/23/24 History Allergies Allergy/AdvReac Type Severity Reaction Status Date / Time adhesive tape Allergy Rash/Hives Verified 10/23/24 10:33 Surgical - Exam - General well developed, well nourished, no distress - Respiratory normal respiratory effort - Psychiatric oriented to time, oriented to person, oriented to place, speech is normal, memory intact Results - Imaging Abdominal x-ray: report reviewed, image reviewed CT scan - abdomen: report reviewed, image reviewed Assessment and Plan (1) Calculus of ureter Status: Acute Code(s): N20.1 - CALCULUS OF URETER SNOMED Code(s): 90218889 Plan: Right ESWL. The procedure has been reviewed in detail with the patient. He has been made aware of potential risks, which include anesthesia, injury to adjacent organs, hematuria, treatment failure, incomplete fragmentation, and [place]. He is also aware of the possible need for a secondary procedure.
[~2024-10-26 06:04] MED LIST changes: -ACETAMINOPHEN TAB 500 MG TAB PO PRN; -GABAPENTIN 300 MG CAP PO PRN; +LACTATED RINGERS 1,000 ML IV SCH; -MELOXICAM 7.5 MG TAB PO PRN; -TRANEXAMIC 1,000 MG/100ML-NACL 1,000 MG in SALINE 1 100ML.BAG IVPB PRN
--- NOTE | 2024-10-26 06:28 | XR ---
EXAMINATION TYPE: XR KUB DATE OF EXAM: 10/26/2024 6:22 AM CLINICAL HISTORY: Right ureteral calculus. Patient having lithotripsy. TECHNIQUE: Two supine KUB images of the abdomen are obtained. COMPARISON: Prior abdominal x-ray from earlier. FINDINGS: The 7 mm calculus in distal right ureter has slightly progressed to the mid sacral level. T here are smaller nonobstructing bilateral renal calculi redemonstrated. Overall nonobstructive bowel gas pattern. Multilevel spurring and disc space narrowing in the lumbar spine. Metallic artifact from hip arthroplasty is redemonstrated. IMPRESSION: As above. [facility], , 10/26/2024 6:26 AM
[2024-10-26 06:46] VITALS: TEMP 98
[2024-10-26] MEDS: IV FLUID CONTINUATION 1,000 ML IV ONE (07:03)
[2024-10-26] MEDS ORDERED: PROPOFOL 10 MG/ML 20 ML VIAL IV ONE (07:26)
[2024-10-26] MEDS ORDERED: KETAMINE HCL IN 0.9 % NACL 50 MG/5 ML SYRINGE ONE (07:26)
[2024-10-26] MEDS ORDERED: fentaNYL (PF) 50 MCG/ML 2 ML AMP ONE (07:26)
[2024-10-26] MEDS ORDERED: MIDAZOLAM 2 MG/2 ML VIAL ONE (07:26)
[2024-10-26] MEDS ORDERED: GLYCOPYRROLATE 0.2 MG/ML 2 ML VIAL ONE (07:26)
--- NOTE | 2024-10-26 07:51 | P.OP ---
Date of Procedure: 10/26/24 Preoperative Diagnosis: right ureteral calculus Postoperative Diagnosis: same Procedure(s) Performed: extracorporeal shockwave lithotripsy, 3000 shocks at energy level 18 Anesthesia: MAC Surgeon: Van Recinos Pathology: none sent Condition: stable Disposition: PACU Indications for Procedure: patient is 79. He is a 9 mm stone over the right SI joint. He and discussed treatment options and he comes for extracorporeal shockwave lithotripsy Description of Procedure: patient brought to the operating suite. He's placed on the lithotripsy table in supine position. The stone was localized in 2 views of fluoroscopy. A total of 3000 shocks at energy level 18/20 is administered with the elizondo piezolith 3000 lithotriptor The stone might be fracturing although it is quite impacted in the ureter at the SI joint. Then the procedure the patient awake and returned recovery in good condition. He tolerated procedure well be discharged home upon recovery and found the office 1 week with a KUB.
[2024-10-26 08:37] VITALS: RESP 18
[2024-10-26 09:12] VITALS: BP 156/94; PULSE 64
== END 2024-10-26 09:55 | disposition home or self-care (01) ==
LOC: ORWHC2ENDO 06:04
PROVIDERS: ATTEND Urology
DX: N20.2 Calculus of kidney with calculus of ureter (principal); F03.90 Unspecified dementia, unspecified severity, without behavioral disturbance, psychotic disturbance, mood disturbance, and anxiety; E78.5 Hyperlipidemia, unspecified; L23.1 Allergic contact dermatitis due to adhesives; Z86.73 Personal history of transient ischemic attack (TIA), and cerebral infarction without residual deficits; Z79.899 Other long term (current) drug therapy
CPT/HCPCS: 74018; 50590; J2250; J3010; J2704; J1596

== ENCOUNTER → 2024-11-02 | Outpatient (CLI) | payer MEDICARE ==
--- NOTE | 2024-11-02 09:31 | XR ---
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 A few retained sutures noted at the m id to lower abdomen. Bilateral nephrolithiasis measuring up to 5 mm on the right and 4 mm on the left . The previous 7 mm calcification in the right side of the pelvis is no longer seen. Right-sided pelv ic phleboliths are unchanged. Partially visualized bilateral total hip arthroplasties. IMPRESSION: The previous 7 mm calcification in the right side of the pelvis is no longer seen. Other bilateral ne phrolithiasis measuring up to 5 mm are redemonstrated. [facility], , 11/02/2024 9:28 AM
== END | disposition home or self-care (01) ==
LOC: RADXRMAIN 08:09
PROVIDERS: ATTEND Urology
DX: N20.0 Calculus of kidney (principal)
CPT/HCPCS: 74018